=== PATIENT | female | born 2000 | race Caucasian/White ===

== ENCOUNTER 2019-10-11 21:23 | Emergency (ER) | payer OTHER ==
[2019-10-11 21:37] VITALS: BP 121/85
--- NOTE | 2019-10-11 22:14 | XRAY Report ---
Reason: pain Procedure Date: 10/11/2019 Accession Number: [id number] / [id number] Procedure: XR - Shoulder 3 View RT CPT Code: Final Report FULL RESULT: EXAM: RIGHT SHOULDER RADIOGRAPHY EXAM DATE: 10/11/2019 10:08 PM. CLINICAL HISTORY: Pain. COMPARISON: None. TECHNIQUE: 3 views. FINDINGS: Bones: Normal. No fracture or bone lesion. Joints: The glenohumeral and acromioclavicular joints are normal. Soft tissues: The visualized hemithorax is unremarkable. No soft tissue swelling. IMPRESSION: Normal shoulder radiography. RAD[facility]
--- NOTE | 2019-10-11 23:11 | ED Physician Documentation ---
PD HPI UPPER EXT INJURY - Stated complaint Stated Complaint: RT SHOULDER INJURY - Chief complaint Chief Complaint: Trauma Ext - History obtained from History obtained from: Patient - History of Present Illness Location: Right, Shoulder Type of injury: Fall Where injury occurred: Home Timing - onset: Enter time (21:00) Timing - details: Abrupt onset Improved by: Rest Worsened by: Moving, Palpating Associated symptoms: No: Weakness, Numbness, Tingling, Swelling, Discolored Recently seen: Not recently seen - Additonal information Additional information: tripped and fell at home 9PM, c/o right shoulder pain Review of Systems Musculoskeletal: reports: Joint pain (right shoulder). denies: Neck pain, Back pain Neurologic: denies: Focal weakness, Numbness PD PAST MEDICAL HISTORY - Past Medical History Past Medical History: No - Past Surgical History Past Surgical History: No - Present Medications Home Medications: Ambulatory Orders Medication Instructions Recorded Confirmed Amoxicillin 10/11/19 HYDROcod/ACETAM 5/325 [[place] 5/325] 10/11/19 10/11/19 traMADol [Ultram] 50 - 100 mg PO Q6H PRN #20 tablet 10/11/19 - Allergies Allergies/Adverse Reactions: Allergies Allergy/AdvReac Type Severity Reaction Status Date / Time No Known Drug Allergies Allergy Verified 10/11/19 21:36 - Living Situation Living Situation: reports: With family Living Arrangement: reports: At home PD ED PE NORMAL - Vitals Vital signs reviewed: Yes - General General: Alert and oriented X 3, No acute distress, Well developed/nourished - Neck Neck: No bony TTP - Neuro Neuro: No motor deficit, No sensory deficit PD ED PE EXPANDED - Extremities Extremities: Tenderness, Limited ROM, Right shoulder Results - Vitals Vitals: Oxygen O2 Source Room air - Rads (name of study) right shoulder xrays Radiology: Prelim report reviewed, See rad report PD MEDICAL DECISION MAKING - ED course Complexity details: reviewed results, re-evaluated patient, considered differential, d/w patient Departure - Departure Disposition: 01 Home, Self Care Clinical Impression: Sprain of shoulder, right Condition: Good Instructions: ED Sprain Shoulder Prescriptions: traMADol [Ultram] 50 - 100 mg PO Q6H PRN #20 tablet PRN Reason: Pain Discharge Date/Time: 10/11/19 23:37
[2019-10-11] MEDS ORDERED: traMADol 50 MG TABLET PO STA (23:28)
== END 2019-10-11 23:37 | disposition home or self-care (01) ==
LOC: ED 21:23
DX: S43.401A Unspecified sprain of right shoulder joint, initial encounter (principal); W10.9XXA Fall (on) (from) unspecified stairs and steps, initial encounter; Y92.009 Unspecified place in unspecified non-institutional (private) residence as the place of occurrence of the external cause
CPT/HCPCS: 73030; 99283; A9270

== ENCOUNTER 2020-03-02 13:11 | Emergency (ER) | payer OTHER ==
[2020-03-02 13:17] VITALS: BP 125/79
[2020-03-02 13:30] LABS: RAPID STREP SCREEN Negative (Negative)
[2020-03-02] MEDS ORDERED: DEXAMETHASONE 10 MG/ML VIAL PO STA (13:47)
[2020-03-02] MEDS ORDERED: CHERRY SYRUP 10 ML UDC PO ONE (13:47)
--- NOTE | 2020-03-02 13:56 | ED Physician Documentation ---
PD HPI HEENT - Stated complaint Stated Complaint: SORE THROAT - Chief complaint Chief Complaint: Heent - History obtained from History obtained from: Patient, Family - History of Present Illness Timing - onset: How many weeks ago (2) Timing - duration: Weeks (2) Timing - details: Gradual onset, Still present Location: Throat Improves: Medication Worsens: Swalllowing Associated symptoms: Congestion, Swollen nodes, Cough Similar symptoms before: Diagnosis (tonsillitis) Recently seen: Not recently seen - Additional information Additional information: 19-year-old female with a prior history of strep pharyngitis has developed a sore throat she has had pain intermittently now for 2 weeks she did take some leftover amoxicillin and this is not gone away. She is having worsening of symptoms now when she is got a lot of white stuff draining on her tonsils. Review of Systems Constitutional: reports: Myalgias, Fatigue. denies: Fever Eyes: denies: Decreased vision Ears: denies: Ear pain Nose: reports: Congestion Throat: reports: Sore throat Cardiac: denies: Chest pain / pressure, Palpitations Respiratory: reports: Cough. denies: Dyspnea GI: denies: Abdominal Pain, Nausea, Vomiting : denies: Dysuria PD PAST MEDICAL HISTORY - Past Surgical History Past Surgical History: No - Present Medications Home Medications: Ambulatory Orders Medication Instructions Recorded Confirmed Amoxicillin 10/11/19 HYDROcod/ACETAM 5/325 [[place] 5/325] 10/11/19 10/11/19 traMADol [Ultram] 50 - 100 mg PO Q6H PRN #20 tablet 10/11/19 Amox/Clav 875/125 [Augmentin] 1 each PO Q12H #20 tablet 03/02/20 - Allergies Allergies/Adverse Reactions: Allergies Allergy/AdvReac Type Severity Reaction Status Date / Time No Known Drug Allergies Allergy Verified 03/02/20 13:15 PD ED PE NORMAL - Vitals Vital signs reviewed: Yes (tachy ) - General General: Alert and oriented X 3, No acute distress, Well developed/nourished - HEENT HEENT: Atraumatic, PERRL, EOMI, Ears normal, Other (the pharynx is with 2+ cryptic tonsils with exudate) - Neck Neck: Supple, no meningeal sign, No bony TTP, Other (shoddy adenopathy bilat ) - Cardiac Cardiac: RRR, No murmur - Respiratory Respiratory: No respiratory distress, Clear bilaterally - Abdomen Abdomen: Soft, Non tender - Back Back: No CVA TTP, No spinal TTP - Extremities Extremities: No deformity, No edema, No calf tenderness / cord - Neuro Neuro: Alert and oriented X 3, curriculum coordinator 2-12 intact, No motor deficit, No sensory deficit, Normal speech Eye Opening: Spontaneous Motor: Obeys Commands Verbal: Oriented GCS Score: 15 - Psych Psych: Normal mood, Normal affect Results - Vitals Vitals: Vital Signs - 24 hr 03/02/20 13:15 Temperature 36.5 C Heart Rate 110 H Respiratory 14 Rate Blood Pressure 125/79 O2 Saturation 98 Oxygen O2 Source Room air - Labs Labs: Laboratory Tests 03/02/20 13:18 Group A Strep Rapid Negative PD MEDICAL DECISION MAKING - ED course Complexity details: reviewed results, re-evaluated patient, considered differential, d/w patient, d/w family ED course: 27-year-old female with a cryptic exudative tonsillitis endorses the fact that she has been staying awake too long at night. She has recurrence of symptoms and she has been using warm saline gargle. We will change her antibiotic to Augmentin and give her a dose of dexamethasone and refer her to ENT. She is very interested in getting her tonsils out. Departure - Departure Disposition: 01 Home, Self Care Clinical Impression: Tonsillitis Condition: Stable Instructions: ED Tonsillitis Follow-Up: [facility] [Provider Group] [facility] [Provider Group] Prescriptions: Amox/Clav 875/125 [Augmentin] 1 each PO Q12H #20 tablet
== END 2020-03-02 14:08 | disposition home or self-care (01) ==
LOC: ED 13:11
DX: J03.90 Acute tonsillitis, unspecified (principal)
CPT/HCPCS: 87070; 87077; 87430; 99283; 99284; A9270

== ENCOUNTER 2020-07-08 12:27 | Emergency (ER) | payer OTHER ==
[2020-07-08 13:37] LABS: BASOPHILS # (AUTO) 0.1 10^3/uL (0.0-0.1); BASOPHILS % (AUTO) 0.6 %; EOSINOPHILS # (AUTO) 0.1 10^3/uL (0.0-0.7); EOSINOPHILS % (AUTO) 1.1 %; HGB - HEMOGLOBIN 14.4 g/dL (12.0-16.0); LYMPHOCYTES # (AUTO) 2.2 10^3/uL (1.5-3.5); LYMPHOCYTES % (AUTO) 27.5 %; MEAN CORPUSCULAR HEMOGLOBIN 31.5 pg (27.0-31.0); MEAN CORPUSCULAR HGB CONC 34.5 g/dL (32.0-36.0); MEAN CORPUSCULAR VOLUME 91.2 fL (81.0-99.0); MEAN PLATELET VOLUME 10.6 fL (7.9-10.8); MONOCYTES # (AUTO) 0.5 10^3/uL (0.0-1.0); MONOCYTES % (AUTO) 6.4 %; NEUTROPHILS # (AUTO) 5.1 10^3/uL (1.5-6.6); NEUTROPHILS % (AUTO) 64.1 %; PLT - PLATELET COUNT 331 10^3/uL (130-450); RED BLOOD COUNT 4.57 10^6/uL (4.20-5.40)
[2020-07-08 13:50] LABS: ALBUMIN 4.6 g/dL (3.2-5.5); ALBUMIN/GLOBULIN RATIO 1.3 (1.0-2.2); BILIRUBIN,TOTAL 0.8 mg/dL (0.2-1.0); CALCIUM 9.4 mg/dL (8.5-10.3); CREATININE 0.6 mg/dL (0.4-1.0); TOTAL PROTEIN 8.1 g/dL (6.7-8.2)
[2020-07-08 15:10] LABS: BILIRUBIN,URINE NEGATIVE (NEGATIVE); GLUCOSE, URINE (UA) NEGATIVE (NEGATIVE); KETONES,URINE (UA) NEGATIVE (NEGATIVE); LEUKOCYTE ESTERASE, URINE NEGATIVE (NEGATIVE); NITRITE,URINE NEGATIVE (NEGATIVE); OCCULT BLOOD,URINE LARGE (NEGATIVE); PROTEIN,URINE NEGATIVE (NEGATIVE); UROBILINOGEN,URINE 0.2 (NORMAL) E.U./dL (NORMAL)
[2020-07-08 15:12] LABS: CLARITY,URINE CLEAR (CLEAR)
[2020-07-08 15:13] LABS: HCG UR QUAL NEGATIVE
--- NOTE | 2020-07-08 15:30 | ED Physician Documentation ---
History of Present Illness - Stated complaint Stated Complaint: FEMALE - Chief complaint Chief Complaint: Abd Pain - History obtained from History obtained from: Patient - Additonal information Additional information: Pt presents w/ vaginal bleeding and lower abd cramping that started this AM. She reports she was on the nexplanon and had her LMP on 05/24/20 which was regular. About 2 weeks ago she went to and had a test that was "lightly positive," and she was told to follow up later for repeat testing. Her nexplanon was removed. She then did a test at home that was also positive. She had not yet had an US. Today she had vaginal bleeding and cramping. The bleeding is like a heavy period, several pads throughout the entire day. No dizziness or weakness, no severe abd pain, no dysuria. Bleeding is slowly this afternoon. Normally does not have heavy periods. Review of Systems Constitutional: reports: Reviewed and negative Cardiac: reports: Reviewed and negative Respiratory: reports: Reviewed and negative GI: reports: Abdominal Pain. denies: Abdominal Swelling, Nausea, Vomiting, Constipation, Diarrhea, Hematemesis : reports: Vaginal bleeding, Irregular menses, Missed period Musculoskeletal: reports: Reviewed and negative Neurologic: reports: Reviewed and negative Psychiatric: reports: Reviewed and negative Endocrine: reports: Reviewed and negative PD PAST MEDICAL HISTORY - Past Medical History Past Medical History: Yes Respiratory: Asthma - Past Surgical History Past Surgical History: No - Present Medications Home Medications: Ambulatory Orders Medication Instructions Recorded Confirmed Amoxicillin 10/11/19 HYDROcod/ACETAM 5/325 [[place] 5/325] 10/11/19 10/11/19 traMADol [Ultram] 50 - 100 mg PO Q6H PRN #20 tablet 10/11/19 Amox/Clav 875/125 [Augmentin] 1 each PO Q12H #20 tablet 03/02/20 - Allergies Allergies/Adverse Reactions: Allergies Allergy/AdvReac Type Severity Reaction Status Date / Time No Known Drug Allergies Allergy Verified 07/08/20 12:34 - Social History Does the pt smoke?: No Smoking Status: Never smoker Does the pt drink ETOH?: No Does the pt have substance abuse?: No PD ED PE NORMAL - Vitals Vital signs reviewed: Yes - General General: Alert and oriented X 3, No acute distress, Well developed/nourished - HEENT HEENT: Atraumatic, Moist mucous membranes, Pharynx benign - Cardiac Cardiac: RRR, No murmur, No gallop, No rub, Strong equal pulses - Respiratory Respiratory: No respiratory distress, Clear bilaterally - Abdomen Abdomen: Normal bowel sounds, Soft, Non tender, Non distended, No organomegaly - Derm Derm: Normal color, Warm and dry, No rash - Neuro Neuro: Alert and oriented X 3 Eye Opening: Spontaneous Motor: Obeys Commands Verbal: Oriented GCS Score: 15 - Psych Psych: Normal mood, Normal affect Results - Vitals Vitals: Vital Signs - 24 hr 07/08/20 07/08/20 12:35 15:35 Temperature 36.9 C 36.9 C Heart Rate 79 60 Respiratory 18 16 Rate Blood Pressure 121/82 H 122/80 O2 Saturation 99 100 Oxygen O2 Source Room air - Labs Labs: Laboratory Tests 07/08/20 07/08/20 07/08/20 13:29 13:29 13:29 WBC 8.0 RBC 4.57 Hgb 14.4 Hct 41.7 MCV 91.2 MCH 31.5 H MCHC 34.5 RDW 12.0 Plt Count 331 MPV 10.6 Neut # (Auto) 5.1 Lymph # (Auto) 2.2 [place] # (Auto) 0.5 Eos # (Auto) 0.1 Baso # (Auto) 0.1 Absolute Nucleated RBC 0.00 Nucleated RBC % 0.0 Sodium 136 Potassium 3.6 Chloride 103 Carbon Dioxide 24 Anion Gap 9.0 BUN 10 Creatinine 0.6 Estimated GFR (MDRD) 127 Glucose 102 H Calcium 9.4 Total Bilirubin 0.8 AST 13 ALT 11 Alkaline Phosphatase 82 Total Protein 8.1 Albumin 4.6 Globulin 3.5 Albumin/Globulin Ratio 1.3 Lipase 34 HCG, Quant < 0.60 Urine Color Urine Clarity Urine pH Ur Specific [place] Urine Protein Urine Glucose (UA) Urine Ketones Urine Occult Blood Urine Nitrite Urine Bilirubin Urine Urobilinogen Ur Leukocyte Esterase Urine RBC Urine WBC Ur Squamous Epith Cells Urine Bacteria Ur Microscopic Review Urine Culture Comments Urine HCG, Qual 07/08/20 14:52 WBC RBC Hgb Hct MCV MCH MCHC RDW Plt Count MPV Neut # (Auto) Lymph # (Auto) [place] # (Auto) Eos # (Auto) Baso # (Auto) Absolute Nucleated RBC Nucleated RBC % Sodium Potassium Chloride Carbon Dioxide Anion Gap BUN Creatinine Estimated GFR (MDRD) Glucose Calcium Total Bilirubin AST ALT Alkaline Phosphatase Total Protein Albumin Globulin Albumin/Globulin Ratio Lipase HCG, Quant Urine Color YELLOW Urine Clarity CLEAR Urine pH 6.0 Ur Specific [place] <=1.005 Urine Protein NEGATIVE Urine Glucose (UA) NEGATIVE Urine Ketones NEGATIVE Urine Occult Blood LARGE H Urine Nitrite NEGATIVE Urine Bilirubin NEGATIVE Urine Urobilinogen 0.2 (NORMAL) Ur Leukocyte Esterase NEGATIVE Urine RBC 6-10 H Urine WBC 0-3 Ur Squamous Epith Cells NONE SEEN Urine Bacteria Rare Ur Microscopic Review INDICATED Urine Culture Comments NOT INDICATED Urine HCG, Qual NEGATIVE PD MEDICAL DECISION MAKING - ED course Complexity details: reviewed results, re-evaluated patient, considered differential, d/w patient ED course: Pt presented w/ vaginal bleeding. Her urine test here and quantitative serum test is negative. It is likely that her clinic test was a false positive or she had an extremely early that was lost. Her labs and exam are otherwise reassuring. I offered vaginal speculum exam to look for other sources of bleeding, but advised this could also be a regular menses, and pt declined. Discussed expectant management, advised fup w/ PCP or PP in the next week. Pt is desiring and declines any contraception at this time. Return precautions reviewed in detail if fever, increased pain, bleeding > 2pads/hr x 2 hours, or otherwise worsening sx. Departure - Departure Disposition: 01 Home, Self Care Clinical Impression: Vaginal bleeding Condition: Good Comments: You presented with vaginal bleeding after two positive tests at home. Your test here was negative and your serum quantitative test was also negative. You may have had an extremely early loss or it is also possible that the tests done previously were false positives. Your labs today are all normal. You may have a regular menstrual bleed for the next few days. You can take ibuprofen or tylenol. If you have bleeding > 2 pads/hour x 2 hours or have severe abd pain, fever or other new concerns, return to the ER. Please follow up with your aviation technical systems specialist within the next week. Discharge Date/Time: 07/08/20 15:52
[2020-07-08 15:36] VITALS: BP 122/80
[2020-07-08 15:42] LABS: BACTERIA,URINE Rare /HPF (None Seen); SQUAMOUS EPITHELIAL CELL,UR NONE SEEN (<= Few)
== END 2020-07-08 15:52 | disposition home or self-care (01) ==
LOC: ED 12:27
DX: N93.9 Abnormal uterine and vaginal bleeding, unspecified (principal); N92.6 Irregular menstruation, unspecified
CPT/HCPCS: 36415; 80053; 81001; 81003; 81025; 83690; 84702; 85025; 87086; 99283; 99284

== ENCOUNTER 2020-07-15 02:54 | Emergency (ER) | payer OTHER ==
--- NOTE | 2020-07-15 02:53 | ED Physician Documentation ---
PD HPI MHE - Stated complaint Stated Complaint: SI - History obtained from History obtained from: Patient, EMS - History of Present Illness Primary symptom: Suicidal ideation Timing - onset: Today Pain level max: 0 Pain level now: 0 Contributing factors: Sig other Recently seen: Emergency Dept - Additional information Additional information: CRISSYLui. Patient was evaluated in this ED 07/08; at that time, she was under the impression that she was and she was concerned she was having a miscarriage. She says she had a test by PMD that was positive but in ED 07/08 her urine and serum tests were both negative and she was discharged. She was told it was possible she was very early in and had a miscarriage although this was unlikely given her negative serum test. Tonight she was having phone conversation with her boyfriend and she says that he told her something to the effect of blaming her for the possible miscarriage and as a result he wanted to break up with her. Patient currently lives with her and they are in the final stages of finalizing a divorce. Per patient, the boyfriend then called 911 due to concern that she was going to harm herself. She admits to h/o cutting behavior but no recent such behavior and she admits that she was considering cutting tonight but she currently denies SI. She arrives via EMS voluntarily Review of Systems Cardiac: reports: Reviewed and negative Respiratory: reports: Reviewed and negative GI: reports: Reviewed and negative Psychiatric: reports: Insomnia. denies: Suicidal (denies suicidal intent although admits to considering self-harm earlier tonight in form of cutting) PD PAST MEDICAL HISTORY - Past Medical History Past Medical History: No - Past Surgical History Past Surgical History: No - Present Medications Home Medications: Ambulatory Orders Medication Instructions Recorded Confirmed Aripiprazole [Abilify] 2 mg PO DAILY #30 tablet 07/15/20 traZODone [Desyrel] 50 - 100 mg PO HS PRN #20 tablet 07/15/20 - Allergies Allergies/Adverse Reactions: Allergies Allergy/AdvReac Type Severity Reaction Status Date / Time No Known Drug Allergies Allergy Verified 07/15/20 03:05 - Living Situation Living Arrangement: reports: At home PD ED PE NORMAL - Vitals Vital signs reviewed: Yes - General General: Alert and oriented X 3, Well developed/nourished, Other (appears anxious and tearful at times but she is polite and cooperative and answers quickly and appropriately) - Cardiac Cardiac: RRR, No murmur - Respiratory Respiratory: No respiratory distress, Clear bilaterally - Neuro Neuro: Alert and oriented X 3 Eye Opening: Spontaneous Motor: Obeys Commands Verbal: Oriented GCS Score: 15 PD ED PE EXPANDED - Psych Psych: Tearful, Anxious (appears mildly anxious at times during H+P) Results - Vitals Vitals: Oxygen O2 Source Room air - Labs Labs: Laboratory Tests 07/15/20 07/15/20 07/15/20 03:22 03:22 04:00 WBC 11.9 H RBC 4.30 Hgb 13.3 Hct 39.6 MCV 92.1 MCH 30.9 MCHC 33.6 RDW 12.3 Plt Count 349 MPV 10.6 Neut # (Auto) 8.7 H Lymph # (Auto) 2.4 [place] # (Auto) 0.6 Eos # (Auto) 0.1 Baso # (Auto) 0.1 Absolute Nucleated RBC 0.00 Nucleated RBC % 0.0 Sodium Potassium Chloride Carbon Dioxide Anion Gap BUN Creatinine Estimated GFR (MDRD) Glucose Calcium Total Bilirubin AST ALT Alkaline Phosphatase Total Protein Albumin Globulin Albumin/Globulin Ratio Lipase TSH Urine Color YELLOW Urine Clarity CLEAR Urine pH 6.0 Ur Specific [place] 1.020 1.020 Urine Protein NEGATIVE Urine Glucose (UA) NEGATIVE Urine Ketones NEGATIVE Urine Occult Blood TRACE-INTA Urine Nitrite NEGATIVE Urine Bilirubin NEGATIVE Urine Urobilinogen 0.2 (NORMAL) Ur Leukocyte Esterase NEGATIVE Ur Microscopic Review NOT INDICATED Urine Culture Comments NOT INDICATED Urine HCG, Qual NEGATIVE Salicylates Urine Opiates Screen NEGATIVE Ur Oxycodone Screen NEGATIVE Urine Methadone Screen NEGATIVE Ur Propoxyphene Screen NEGATIVE Acetaminophen Ur Barbiturates Screen NEGATIVE Ur Tricyclics Screen NEGATIVE Ur Phencyclidine Scrn NEGATIVE Ur Amphetamine Screen NEGATIVE U Methamphetamines Scrn NEGATIVE U Benzodiazepines Scrn NEGATIVE Urine Cocaine Screen NEGATIVE U Cannabinoids Screen NEGATIVE Ethyl Alcohol 07/15/20 07/15/20 04:00 04:00 WBC RBC Hgb Hct MCV MCH MCHC RDW Plt Count MPV Neut # (Auto) Lymph # (Auto) [place] # (Auto) Eos # (Auto) Baso # (Auto) Absolute Nucleated RBC Nucleated RBC % Sodium 139 Potassium 4.4 Chloride 106 Carbon Dioxide 24 Anion Gap 9.0 BUN 8 Creatinine 0.6 Estimated GFR (MDRD) 127 Glucose 106 H Calcium 9.7 Total Bilirubin 0.7 AST 11 ALT < 10 L Alkaline Phosphatase 73 Total Protein 7.6 Albumin 4.5 Globulin 3.1 Albumin/Globulin Ratio 1.5 Lipase 26 TSH 2.42 Urine Color Urine Clarity Urine pH Ur Specific [place] Urine Protein Urine Glucose (UA) Urine Ketones Urine Occult Blood Urine Nitrite Urine Bilirubin Urine Urobilinogen Ur Leukocyte Esterase Ur Microscopic Review Urine Culture Comments Urine HCG, Qual Salicylates < 6.0 Urine Opiates Screen Ur Oxycodone Screen Urine Methadone Screen Ur Propoxyphene Screen Acetaminophen < 10 L Ur Barbiturates Screen Ur Tricyclics Screen Ur Phencyclidine Scrn Ur Amphetamine Screen U Methamphetamines Scrn U Benzodiazepines Scrn Urine Cocaine Screen U Cannabinoids Screen Ethyl Alcohol < 5.0 PD MEDICAL DECISION MAKING - ED course Complexity details: reviewed results, re-evaluated patient, considered differential, d/w patient ED course: telepscyh consult obtained and plan is d/c with rx for abilify 2mg QD as well as PRN trazadone QHS for sleep. I discussed this with patient after telepsych consult completed and she confirms she is comfortable with this plan, will return if worse, f/u with PMD Departure - Departure Disposition: 01 Home, Self Care Clinical Impression: Depression Qualifiers: Depression Type: unspecified Qualified Code(s): F32.9 - Major depressive disorder, single episode, unspecified Condition: Good Instructions: ED Depression Follow-Up: [facility] [Provider Group] Prescriptions: Aripiprazole [Abilify] 2 mg PO DAILY #30 tablet traZODone [Desyrel] 50 - 100 mg PO HS PRN #20 tablet PRN Reason: Insomnia Discharge Date/Time: 07/15/20 09:01
[2020-07-15 03:49] LABS: MUDS CUTOFF CONCENTRATIONS CUTOFF CONC BELOW:
[2020-07-15 03:52] LABS: BILIRUBIN,URINE NEGATIVE (NEGATIVE); GLUCOSE, URINE (UA) NEGATIVE (NEGATIVE); KETONES,URINE (UA) NEGATIVE (NEGATIVE); LEUKOCYTE ESTERASE, URINE NEGATIVE (NEGATIVE); NITRITE,URINE NEGATIVE (NEGATIVE); OCCULT BLOOD,URINE TRACE-INTA (NEGATIVE); PROTEIN,URINE NEGATIVE (NEGATIVE); UROBILINOGEN,URINE 0.2 (NORMAL) E.U./dL (NORMAL)
[2020-07-15 04:00] LABS: CLARITY,URINE CLEAR (CLEAR)
[2020-07-15 04:02] LABS: AMPHETAMINE SCREEN,URINE NEGATIVE (NEGATIVE); BENZODIAZEPINES SCREEN, URINE NEGATIVE (NEGATIVE); COCAINE SCREEN URINE NEGATIVE (NEGATIVE); METHADONE SCREEN, URINE NEGATIVE (NEGATIVE); METHAMPHETAMINES SCREEN, URINE NEGATIVE (NEGATIVE); OPIATE SCREEN, URINE NEGATIVE (NEGATIVE); OXYCODONE SCREEN, URINE NEGATIVE (NEGATIVE); PROPOXYPHENE SCREEN, URINE NEGATIVE (NEGATIVE); TRICYCLIC ANTIDEPRESSANT,URINE NEGATIVE (NEGATIVE)
[2020-07-15 04:03] LABS: BASOPHILS # (AUTO) 0.1 10^3/uL (0.0-0.1); BASOPHILS % (AUTO) 0.5 %; EOSINOPHILS # (AUTO) 0.1 10^3/uL (0.0-0.7); EOSINOPHILS % (AUTO) 0.4 %; HGB - HEMOGLOBIN 13.3 g/dL (12.0-16.0); LYMPHOCYTES # (AUTO) 2.4 10^3/uL (1.5-3.5); LYMPHOCYTES % (AUTO) 20.3 %; MEAN CORPUSCULAR HEMOGLOBIN 30.9 pg (27.0-31.0); MEAN CORPUSCULAR HGB CONC 33.6 g/dL (32.0-36.0); MEAN CORPUSCULAR VOLUME 92.1 fL (81.0-99.0); MEAN PLATELET VOLUME 10.6 fL (7.9-10.8); MONOCYTES # (AUTO) 0.6 10^3/uL (0.0-1.0); MONOCYTES % (AUTO) 4.9 %; NEUTROPHILS # (AUTO) 8.7 10^3/uL (1.5-6.6); NEUTROPHILS % (AUTO) 73.6 %; PLT - PLATELET COUNT 349 10^3/uL (130-450); RED CELL DISTRIBUTION WIDTH 12.3 % (12.0-15.0); WHITE BLOOD COUNT 11.9 x10^3/uL (4.8-10.8)
[2020-07-15 04:18] LABS: ACETAMINOPHEN < 10 ug/mL (10-30); ALBUMIN 4.5 g/dL (3.2-5.5); ALBUMIN/GLOBULIN RATIO 1.5 (1.0-2.2); ALKALINE PHOSPHATASE 73 IU/L (42-121); ALT ALANINE AMINOTRANSFERASE < 10 IU/L (10-60); AST ASPARTATE AMINOTRANSFERASE 11 IU/L (10-42); BILIRUBIN,TOTAL 0.7 mg/dL (0.2-1.0); BUN - BLOOD UREA NITROGEN 8 mg/dL (6-20); CALCIUM 9.7 mg/dL (8.5-10.3); CARBON DIOXIDE - CO2 24 mmol/L (21-32); CHLORIDE 106 mmol/L (101-111); CREATININE 0.6 mg/dL (0.4-1.0); GLUCOSE 106 mg/dL (70-100); LIPASE 26 U/L (22-51); SALICYLATE < 6.0 mg/dL; SODIUM 139 mmol/L (135-145); TOTAL PROTEIN 7.6 g/dL (6.7-8.2)
[2020-07-15 05:32] LABS: HCG UR QUAL NEGATIVE
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
[2020-07-15 08:23] VITALS: BP 106/72
[2020-07-15] MEDS ORDERED: ACETAMINOPHEN 325 MG TABLET PO STA (08:23)
== END 2020-07-15 09:01 | disposition home or self-care (01) ==
LOC: EDUNIT# → ED 02:54
DX: F31.60 Bipolar disorder, current episode mixed, unspecified (principal); F43.12 Post-traumatic stress disorder, chronic
CPT/HCPCS: 36415; 80320; 80329; 81003; 81025; 83690; 99284; A9270; G0426; 80053; 80306; 80307; 81001; 84443; 85025; 87086

== ENCOUNTER 2020-11-02 19:42 | Emergency (ER) | payer OTHER ==
[2020-11-02 20:03] LABS: BILIRUBIN,URINE NEGATIVE (NEGATIVE); GLUCOSE, URINE (UA) NEGATIVE (NEGATIVE); KETONES,URINE (UA) NEGATIVE (NEGATIVE); LEUKOCYTE ESTERASE, URINE NEGATIVE (NEGATIVE); NITRITE,URINE NEGATIVE (NEGATIVE); OCCULT BLOOD,URINE NEGATIVE (NEGATIVE); PH,URINE 7.5 PH (5.0-7.5); PROTEIN,URINE NEGATIVE (NEGATIVE); UROBILINOGEN,URINE 0.2 (NORMAL) E.U./dL (NORMAL)
[2020-11-02 20:04] LABS: HCG UR QUAL POSITIVE
[2020-11-02 20:05] LABS: CLARITY,URINE CLEAR (CLEAR)
[2020-11-02 20:22] LABS: BACTERIA,URINE Rare /HPF (None Seen); RBC,URINE None Seen /HPF (0-5); SQUAMOUS EPITHELIAL CELL,UR FEW Squamous (<= Few); WBC,URINE 0-3 /HPF (0-5)
--- NOTE | 2020-11-02 20:49 | ED Physician Documentation ---
History of Present Illness - Stated complaint Stated Complaint: FEMALE - Chief complaint Chief Complaint: Abd Pain - History obtained from History obtained from: Patient - Additonal information Additional information: 20-year-old woman, G1, P0 with LMP September 28 presents with 1 episode of nonbloody nonbilious nausea vomiting today and request that we confirm her . She states that she took 10 tests today and is worried because she was drinking alcohol over the weekend. Denies vaginal bleeding, abdominal pain, fevers, urinary symptoms. Has not seen an OB yet but she is ivette ing a vitamin.Endorses some decreased appetite and increased urinary frequency. Review of Systems Ten Systems: 10 systems reviewed and negative Constitutional: denies: Fever, Chills GI: reports: Nausea, Vomiting. denies: Abdominal Pain PD PAST MEDICAL HISTORY - Past Medical History Past Medical History: Yes Respiratory: Asthma - Past Surgical History Past Surgical History: No - Present Medications Home Medications: Ambulatory Orders Medication Instructions Recorded Confirmed No Known Home Medications 11/02/20 11/02/20 - Allergies Allergies/Adverse Reactions: Allergies Allergy/AdvReac Type Severity Reaction Status Date / Time hydrocodone AdvReac Unknown Verified 11/02/20 20:06 - Social History Does the pt smoke?: No Smoking Status: Never smoker Does the pt drink ETOH?: Yes Does the pt have substance abuse?: No - Immunizations Immunizations are current?: Yes - POLST Patient has POLST: No PD ED PE NORMAL - Vitals Vital signs reviewed: Yes - General General: Alert and oriented X 3, No acute distress, Well developed/nourished - HEENT HEENT: Atraumatic, PERRL, EOMI - Neck Neck: Supple, no meningeal sign - Cardiac Cardiac: RRR - Respiratory Respiratory: No respiratory distress, Clear bilaterally - Abdomen Abdomen: Non tender, Non distended - Back Back: No CVA TTP - Derm Derm: Normal color, Warm and dry - Extremities Extremities: No deformity, No edema - Neuro Neuro: Alert and oriented X 3 - Psych Psych: Normal mood Results - Vitals Vitals: Vital Signs - 24 hr 11/02/20 11/02/20 11/02/20 19:52 20:06 20:51 Temperature 36.9 C Heart Rate 89 93 74 Respiratory 17 16 16 Rate Blood Pressure 131/72 H 123/67 126/70 O2 Saturation 100 100 100 Oxygen O2 Source Room air - Labs Labs: Laboratory Tests 11/02/20 11/02/20 19:52 19:52 Urine Color YELLOW Urine Clarity CLEAR Urine pH 7.5 Ur Specific [place] 1.025 Urine Protein NEGATIVE Urine Glucose (UA) NEGATIVE Urine Ketones NEGATIVE Urine Occult Blood NEGATIVE Urine Nitrite NEGATIVE Urine Bilirubin NEGATIVE Urine Urobilinogen 0.2 (NORMAL) Ur Leukocyte Esterase NEGATIVE Urine RBC None Seen Urine WBC 0-3 Ur Squamous Epith Cells FEW Squamous Urine Bacteria Rare Urine Culture Comments NOT INDICATED Urine HCG, Qual POSITIVE PD MEDICAL DECISION MAKING - ED course ED course: 20-year-old woman presents requesting a confirmation of test. She is on qualitative test. Counseling was given about morning sickness and need for frequent small meals as well as vitamin and OB follow-up. She will make an appointment this week. Strict return precautions given. Departure - Departure Disposition: 01 Home, Self Care Clinical Impression: Early stage of , Vomiting Condition: Good Instructions: Preg Comfort Tips Follow-Up: Jazmyn Cannon MD [Provider Admit Priv/Credential] - Comments: You were seen in the emergency department for Nausea and vomiting related to early . You should call and make an appointment for your first 8-week appointment this week. Please take a vitamin daily and make sure you eat small meals regularly throughout the day. Drink 8 to 10 glasses of water daily at least. Return to the emergency department if you experience vaginal bleeding, severe pain, or other symptoms of concern to you. Discharge Date/Time: 11/02/20 20:56
[2020-11-02 20:52] VITALS: BP 126/70
== END 2020-11-02 20:56 | disposition home or self-care (01) ==
LOC: ED 19:42
DX: O21.9 Vomiting of pregnancy, unspecified (principal); Z3A.01 Less than 8 weeks gestation of pregnancy
CPT/HCPCS: 81001; 81025; 87086; 99282; 99283

== ENCOUNTER 2020-11-08 22:08 | Emergency (ER) | payer OTHER ==
--- NOTE | 2020-11-08 22:20 | ED Physician Documentation ---
PD HPI FEMALE - Stated complaint Stated Complaint: FEMALE ,BLEEDING - Chief complaint Chief Complaint: Abd Pain - History obtained from History obtained from: Patient - History of Present Illness Timing - onset: Enter time (15:00), Today Timing - details: Abrupt onset Pain level max: 6 Associated symptoms: Pelvic pain (suprapubic), Vaginal bleeding. 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 She returns at this time because she developed vaginal bleeding and suprapubic cramping pain at approximately 3 PM today while at work. She has not yet been evaluated in outpatient setting; she says she has placed several calls to [facility] but has yet to hear back from them. Review of Systems Constitutional: reports: Reviewed and negative GI: reports: Abdominal Pain (suprapubic cramping). denies: Nausea, Vomiting, Constipation, Diarrhea : reports: Vaginal bleeding, Now EGA. denies: Dysuria, Frequency Musculoskeletal: denies: Back pain PD PAST MEDICAL HISTORY - Past Medical History Respiratory: Asthma - Past Surgical History Past Surgical History: No - Present Medications Home Medications: Ambulatory Orders Medication Instructions Recorded Confirmed No Known Home Medications 11/02/20 11/08/20 - Allergies Allergies/Adverse Reactions: Allergies Allergy/AdvReac Type Severity Reaction Status Date / Time hydrocodone AdvReac Unknown Verified 11/08/20 22:13 - Social History Does the pt smoke?: No Smoking Status: Never smoker Does the pt drink ETOH?: Yes Does the pt have substance abuse?: No - Immunizations Immunizations are current?: Yes - POLST Patient has POLST: No PD ED PE NORMAL - Vitals Vital signs reviewed: Yes - General General: Alert and oriented X 3, No acute distress, Well developed/nourished - Cardiac Cardiac: RRR, No murmur - Respiratory Respiratory: No respiratory distress, Clear bilaterally - Abdomen Abdomen: Soft, Non tender - Back Back: No CVA TTP Results - Vitals Vitals: Oxygen O2 Source Room air - Labs Labs: Laboratory Tests 11/08/20 11/08/20 11/08/20 22:12 22:33 22:33 WBC 11.3 H RBC 4.23 Hgb 13.3 Hct 39.8 MCV 94.1 MCH 31.4 H MCHC 33.4 RDW 12.4 Plt Count 331 MPV 10.4 Neut # (Auto) 7.9 H Lymph # (Auto) 2.7 [place] # (Auto) 0.6 Eos # (Auto) 0.1 Baso # (Auto) 0.1 Absolute Nucleated RBC 0.00 Nucleated RBC % 0.0 Sodium Potassium Chloride Carbon Dioxide Anion Gap BUN Creatinine Estimated GFR (MDRD) Glucose Calcium HCG, Quant Urine Color YELLOW Urine Clarity CLEAR Urine pH 6.5 Ur Specific [place] 1.025 Urine Protein NEGATIVE Urine Glucose (UA) NEGATIVE Urine Ketones NEGATIVE Urine Occult Blood TRACE-INTA Urine Nitrite NEGATIVE Urine Bilirubin NEGATIVE Urine Urobilinogen 0.2 (NORMAL) Ur Leukocyte Esterase NEGATIVE Ur Microscopic Review NOT INDICATED Urine Culture Comments NOT INDICATED Blood Type A POSITIVE Antibody Screen NEGATIVE 11/08/20 11/08/20 22:33 22:33 WBC RBC Hgb Hct MCV MCH MCHC RDW Plt Count MPV Neut # (Auto) Lymph # (Auto) [place] # (Auto) Eos # (Auto) Baso # (Auto) Absolute Nucleated RBC Nucleated RBC % Sodium 141 Potassium 3.5 Chloride 104 Carbon Dioxide 24 Anion Gap 13.0 BUN 10 Creatinine 0.6 Estimated GFR (MDRD) 126 Glucose 93 Calcium 10.1 HCG, Quant 3723.00 Urine Color Urine Clarity Urine pH Ur Specific [place] Urine Protein Urine Glucose (UA) Urine Ketones Urine Occult Blood Urine Nitrite Urine Bilirubin Urine Urobilinogen Ur Leukocyte Esterase Ur Microscopic Review Urine Culture Comments Blood Type Antibody Screen - Rads (name of study) first trimester US Radiology: Prelim report reviewed, See rad report PD MEDICAL DECISION MAKING - ED course Complexity details: reviewed results, re-evaluated patient, considered differential, d/w patient Departure - Departure Disposition: 01 Home, Self Care Clinical Impression: Threatened miscarriage Condition: Good Instructions: ED Miscarriage Poss Follow-Up: Donis Rice MD [Provider Admit Priv/Credential] - JESSIE BREAUX ARNP [Primary Care Provider] - Discharge Date/Time: 11/09/20 01:29
[2020-11-08 22:32] LABS: BILIRUBIN,URINE NEGATIVE (NEGATIVE); CLARITY,URINE CLEAR (CLEAR); GLUCOSE, URINE (UA) NEGATIVE (NEGATIVE); KETONES,URINE (UA) NEGATIVE (NEGATIVE); LEUKOCYTE ESTERASE, URINE NEGATIVE (NEGATIVE); NITRITE,URINE NEGATIVE (NEGATIVE); OCCULT BLOOD,URINE TRACE-INTA (NEGATIVE); PH,URINE 6.5 PH (5.0-7.5); PROTEIN,URINE NEGATIVE (NEGATIVE); UROBILINOGEN,URINE 0.2 (NORMAL) E.U./dL (NORMAL)
[2020-11-08 22:41] LABS: BASOPHILS # (AUTO) 0.1 10^3/uL (0.0-0.1); BASOPHILS % (AUTO) 0.5 %; EOSINOPHILS # (AUTO) 0.1 10^3/uL (0.0-0.7); EOSINOPHILS % (AUTO) 0.6 %; HCT - HEMATOCRIT 39.8 % (37.0-47.0); HGB - HEMOGLOBIN 13.3 g/dL (12.0-16.0); LYMPHOCYTES # (AUTO) 2.7 10^3/uL (1.5-3.5); LYMPHOCYTES % (AUTO) 24.2 %; MEAN CORPUSCULAR HEMOGLOBIN 31.4 pg (27.0-31.0); MEAN CORPUSCULAR HGB CONC 33.4 g/dL (32.0-36.0); MEAN CORPUSCULAR VOLUME 94.1 fL (81.0-99.0); MEAN PLATELET VOLUME 10.4 fL (7.9-10.8); MONOCYTES # (AUTO) 0.6 10^3/uL (0.0-1.0); NEUTROPHILS # (AUTO) 7.9 10^3/uL (1.5-6.6); NEUTROPHILS % (AUTO) 69.4 %; PLT - PLATELET COUNT 331 10^3/uL (130-450); RED BLOOD COUNT 4.23 10^6/uL (4.20-5.40); RED CELL DISTRIBUTION WIDTH 12.4 % (12.0-15.0); WHITE BLOOD COUNT 11.3 x10^3/uL (4.8-10.8)
[2020-11-08 22:55] LABS: CALCIUM 10.1 mg/dL (8.5-10.3); CREATININE 0.6 mg/dL (0.4-1.0); POTASSIUM 3.5 mmol/L (3.5-5.0)
[2020-11-09 01:29] VITALS: BP 133/75
--- NOTE | 2020-11-09 13:39 | Ultrasound Report ---
PROCEDURE: OB First Trimester INDICATIONS: ,vaginal bleeding, cramping OUTSIDE/PRIOR DATING DATA: Last menstrual period (LMP): 09/28/2020. LMP-based estimated date of delivery (TOÑITO): 09/04/2020. First dating scan (date and location): 11/08/2020. Estimated date of delivery (TOÑITO) from first dating scan: Not applicable. TECHNIQUE: Real-time scanning was performed of the fetus and maternal pelvic organs, with image documentation. COMPARISON: None FINDINGS: Embryo: Intrauterine gestational sac is identified measuring 4 mm corresponding to 5 weeks 1 day. No pole is identified. Measurement variability in dating: +/- 4 weeks by LMP, +/- 7 days by mean sac diameter (use before 6 weeks gestation if crown-rump length not able to be measured), +/- 5 days by crown-rump length (6-12 weeks gestation). Maternal organs: Ovaries are unremarkable. IMPRESSION: 1. Intrauterine gestational sac without visualized pole. Recommend correlation to beta hCG leve ls and short interval imaging follow-up for continued evaluation. The above findings are concordant with preliminary report. Reviewed by: Chantal Burt MD on 11/09/2020 1:37 PM PDT Approved by: Chantal Burt MD on 11/09/2020 1:37 PM PDT Station ID: [id number]
--- NOTE | 2020-11-09 13:39 | Ultrasound Report ---
PROCEDURE: OB Transvaginal INDICATIONS: ,vaginal bleeding, cramping OUTSIDE/PRIOR DATING DATA: Last menstrual period (LMP): 09/28/2020. LMP-based estimated date of delivery (TOÑITO): 09/04/2020. First dating scan (date and location): 11/08/2020. Estimated date of delivery (TOÑITO) from first dating scan: Not applicable. TECHNIQUE: Real-time scanning was performed of the fetus and maternal pelvic organs, with image documentation. COMPARISON: None FINDINGS: Embryo: Intrauterine gestational sac is identified measuring 4 mm corresponding to 5 weeks 1 day. No pole is identified. Measurement variability in dating: +/- 4 weeks by LMP, +/- 7 days by mean sac diameter (use before 6 weeks gestation if crown-rump length not able to be measured), +/- 5 days by crown-rump length (6-12 weeks gestation). Maternal organs: Ovaries are unremarkable. IMPRESSION: 1. Intrauterine gestational sac without visualized pole. Recommend correlation to beta hCG diegoe ls and short interval imaging follow-up for continued evaluation. The above findings are concordant with preliminary report. Reviewed by: Chantal Burt MD on 11/09/2020 1:38 PM PDT Approved by: Chantal Burt MD on 11/09/2020 1:38 PM PDT Station ID: [id number]
== END 2020-11-09 01:29 | disposition home or self-care (01) ==
LOC: ED 22:08
DX: O20.0 Threatened abortion (principal); Z3A.01 Less than 8 weeks gestation of pregnancy
CPT/HCPCS: 36415; 80048; 81001; 81003; 84702; 85025; 86850; 86900; 86901; 87086; 99284

== ENCOUNTER 2020-11-10 23:15 | Emergency (ER) | payer OTHER ==
[2020-11-11 00:21] LABS: BASOPHILS # (AUTO) 0.1 10^3/uL (0.0-0.1); BASOPHILS % (AUTO) 0.6 %; EOSINOPHILS # (AUTO) 0.1 10^3/uL (0.0-0.7); EOSINOPHILS % (AUTO) 0.8 %; HCT - HEMATOCRIT 37.7 % (37.0-47.0); HGB - HEMOGLOBIN 12.3 g/dL (12.0-16.0); LYMPHOCYTES % (AUTO) 24.2 %; MEAN CORPUSCULAR HEMOGLOBIN 31.1 pg (27.0-31.0); MEAN CORPUSCULAR HGB CONC 32.6 g/dL (32.0-36.0); MEAN CORPUSCULAR VOLUME 95.2 fL (81.0-99.0); MEAN PLATELET VOLUME 10.5 fL (7.9-10.8); MONOCYTES # (AUTO) 0.6 10^3/uL (0.0-1.0); MONOCYTES % (AUTO) 4.8 %; NEUTROPHILS # (AUTO) 8.5 10^3/uL (1.5-6.6); NEUTROPHILS % (AUTO) 69.1 %; PLT - PLATELET COUNT 297 10^3/uL (130-450); RED BLOOD COUNT 3.96 10^6/uL (4.20-5.40); RED CELL DISTRIBUTION WIDTH 12.5 % (12.0-15.0); WHITE BLOOD COUNT 12.2 x10^3/uL (4.8-10.8)
--- NOTE | 2020-11-11 00:23 | ED Physician Documentation ---
PD HPI FEMALE - Stated complaint Stated Complaint: 5WKS/BLEEDING - Chief complaint Chief Complaint: Abd Pain - History obtained from History obtained from: Patient - History of Present Illness Associated symptoms: Pelvic pain, Vaginal bleeding (for 3 days, having some spotting, with increased amount today, having used 3-4 light/liner pads today. Thought she noted some tissue appearing material today as well.). 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 Quant done. Blood type A positive.) Review of Systems Constitutional: denies: Fever, Chills Nose: denies: Rhinorrhea / runny nose, Congestion Throat: denies: Sore throat Respiratory: denies: Cough GI: denies: Nausea, Vomiting : reports: Vaginal bleeding, Now EGA (5 wks). denies: Dysuria, Discharge Neurologic: denies: Generalized weakness, Near syncope PD PAST MEDICAL HISTORY - Past Medical History Past Medical History: No Respiratory: Asthma - Past Surgical History Past Surgical History: No - Present Medications Home Medications: Ambulatory Orders Medication Instructions Recorded Confirmed No Known Home Medications 11/02/20 11/10/20 - Allergies Allergies/Adverse Reactions: Allergies Allergy/AdvReac Type Severity Reaction Status Date / Time hydrocodone AdvReac Unknown Verified 11/10/20 23:38 - Social History Does the pt smoke?: No Smoking Status: Never smoker Does the pt drink ETOH?: Yes Does the pt have substance abuse?: No - Immunizations Immunizations are current?: Yes - POLST Patient has POLST: No PD ED PE NORMAL - Vitals Vital signs reviewed: Yes - General General: Alert and oriented X 3, No acute distress, Well developed/nourished - Cardiac Cardiac: RRR, No murmur - Respiratory Respiratory: Clear bilaterally - Abdomen Abdomen: Normal bowel sounds, Soft, Non tender, Non distended - Female Female : Deferred - Back Back: No CVA TTP - Derm Derm: Normal color, Warm and dry Results - Vitals Vitals: Vital Signs - 24 hr 11/10/20 11/11/20 23:35 01:28 Temperature 36.8 C Heart Rate 92 80 Respiratory 16 16 Rate Blood Pressure 118/73 107/90 H O2 Saturation 100 100 Oxygen O2 Source Room air - Labs Labs: Laboratory Tests 11/10/20 11/10/20 11/10/20 00:11 00:11 00:11 WBC 12.2 H RBC 3.96 L Hgb 12.3 Hct 37.7 MCV 95.2 MCH 31.1 H MCHC 32.6 RDW 12.5 Plt Count 297 MPV 10.5 Neut # (Auto) 8.5 H Lymph # (Auto) 3.0 [place] # (Auto) 0.6 Eos # (Auto) 0.1 Baso # (Auto) 0.1 Absolute Nucleated RBC 0.00 Nucleated RBC % 0.0 Sodium 137 Potassium 3.8 Chloride 103 Carbon Dioxide 25 Anion Gap 9.0 BUN 11 Creatinine 0.6 Estimated GFR (MDRD) 126 Glucose 90 Calcium 9.1 Total Bilirubin 0.5 AST 11 ALT < 10 L Alkaline Phosphatase 63 Total Protein 6.8 Albumin 4.1 Globulin 2.7 Albumin/Globulin Ratio 1.5 Lipase 26 HCG, Quant 5406.00 PD MEDICAL DECISION MAKING - ED course Complexity details: reviewed old records, reviewed results, considered differential (increased bleeding today. Rising HCG levels c/w viability UTD, but will want to check HCG again in 2-3 days to evaluate if current bleeding is now the miscarriage. ), d/w patient Departure - Departure Disposition: 01 Home, Self Care Clinical Impression: Vaginal bleeding, Early stage of Condition: Stable Record reviewed to determine appropriate education?: Yes Follow-Up: JESSIE BREAUX ARNP [Primary Care Provider] - Comments: Stay well-hydrated. Tylenol every 4-6 hours if needed for pain or cramps. Alternatively you can use ibuprofen 400 to 600 mg every 6-8 hours if needed for pain or cramps as well. NSAIDs such as ibuprofen are okay in up to about 20 weeks gestational age. Your quantitative hCG is increased today compared to 2 days ago which would mean your is still viable at this time and progressing. Follow-up with your primary care in the next 2 to 3 days at which point there will want to repeat the quantitative hCG again to ensure it still trending upwards. Discharge Date/Time: 11/11/20 01:28
[2020-11-11 00:35] LABS: ALBUMIN 4.1 g/dL (3.2-5.5); ALBUMIN/GLOBULIN RATIO 1.5 (1.0-2.2); ALKALINE PHOSPHATASE 63 IU/L (42-121); ALT ALANINE AMINOTRANSFERASE < 10 IU/L (10-60); AST ASPARTATE AMINOTRANSFERASE 11 IU/L (10-42); BILIRUBIN,TOTAL 0.5 mg/dL (0.2-1.0); BUN - BLOOD UREA NITROGEN 11 mg/dL (6-20); CALCIUM 9.1 mg/dL (8.5-10.3); CARBON DIOXIDE - CO2 25 mmol/L (21-32); CHLORIDE 103 mmol/L (101-111); CREATININE 0.6 mg/dL (0.4-1.0); GFR - MDRD 126 (>89); GLUCOSE 90 mg/dL (70-100); LIPASE 26 U/L (22-51); POTASSIUM 3.8 mmol/L (3.5-5.0); SODIUM 137 mmol/L (135-145); TOTAL PROTEIN 6.8 g/dL (6.7-8.2)
[2020-11-11] MEDS ORDERED: IBUPROFEN 600 MG TABLET PO STA (00:42)
[2020-11-11] MEDS ORDERED: ACETAMINOPHEN 325 MG TABLET PO STA (00:42)
[2020-11-11 01:31] VITALS: BP 107/90
== END 2020-11-11 01:28 | disposition home or self-care (01) ==
LOC: ED 23:15
DX: O20.9 Hemorrhage in early pregnancy, unspecified (principal); Z3A.01 Less than 8 weeks gestation of pregnancy
CPT/HCPCS: 36415; 80053; 83690; 84702; 85025; 99283; 99284; A9270; 86900; 86901

== ENCOUNTER 2020-11-15 23:00 | Emergency (ER) | payer OTHER ==
[2020-11-15 23:48] VITALS: BP 127/77
--- NOTE | 2020-11-16 00:06 | ED Physician Documentation ---
PD HPI FEMALE - Stated complaint Stated Complaint: FEMALE - Chief complaint Chief Complaint: Abd Pain - History obtained from History obtained from: Patient - Additional information Additional information: Patient returns emergency department for chief complaint of ongoing vaginal bleeding after being seen on the and of this month for threatened miscarriage. According to records, on the first day of visit, patient was felt to be somewhere around 5 to 6 weeks . Ultrasound showed a sac with no pole. , patient was found to have a hCG of about 3700, followed by an hCG of 5400 on the . Patient states she had moderate vaginal bleeding throughout that time. She decided to take the weekend off and go to [place] and during that time, she noticed an uptake in her bleeding. She passed what she thought might be some tissue, though she did not notice a sac. Patient states the bleeding has abated a little. She tried to make an appointment with her primary care physician today for follow-up, but could not get through. As such, she decided to return to the emergency department for another repeat hCG to see how things are going. Patient denies fevers or chills. She has mild cramping in her low abdomen. No severe pain. No lightheadedness or fainting. No other complaints at this time. Review of Systems Ten Systems: 10 systems reviewed and negative Constitutional: reports: Reviewed and negative Eyes: reports: Reviewed and negative Ears: reports: Reviewed and negative Nose: reports: Reviewed and negative Throat: reports: Reviewed and negative Cardiac: reports: Reviewed and negative Respiratory: reports: Reviewed and negative GI: reports: Reviewed and negative : reports: Vaginal bleeding, Now EGA Skin: reports: Reviewed and negative Musculoskeletal: reports: Reviewed and negative Neurologic: reports: Reviewed and negative Psychiatric: reports: Reviewed and negative Endocrine: reports: Reviewed and negative Immunocompromised: reports: Reviewed and negative PD PAST MEDICAL HISTORY - Past Medical History Past Medical History: Yes Respiratory: Asthma - Past Surgical History Past Surgical History: No - Present Medications Home Medications: Ambulatory Orders Medication Instructions Recorded Confirmed No Known Home Medications 11/02/20 11/10/20 - Allergies Allergies/Adverse Reactions: Allergies Allergy/AdvReac Type Severity Reaction Status Date / Time hydrocodone AdvReac Unknown Verified 11/10/20 23:38 - Social History Does the pt smoke?: No Smoking Status: Never smoker Does the pt drink ETOH?: Yes Does the pt have substance abuse?: No - Immunizations Immunizations are current?: Yes - POLST Patient has POLST: No PD ED PE NORMAL - Vitals Vital signs reviewed: Yes - General General: Alert and oriented X 3, No acute distress, Well developed/nourished - HEENT HEENT: Atraumatic, PERRL, EOMI, Moist mucous membranes - Neck Neck: Supple, no meningeal sign - Cardiac Cardiac: RRR, No murmur, Strong equal pulses - Respiratory Respiratory: No respiratory distress, Clear bilaterally - Abdomen Abdomen: Soft, Non tender, Non distended - Derm Derm: Normal color, Warm and dry, No rash - Extremities Extremities: No deformity, No edema - Neuro Neuro: Alert and oriented X 3, miller helper distillery 2-12 intact, Normal speech, Other (Grossly intact) - Psych Psych: Normal mood, Normal affect Results - Vitals Vitals: Vital Signs - 24 hr 11/15/20 11/15/20 11/15/20 23:06 23:09 23:42 Temperature 36.4 C L 36.4 C L Heart Rate 176 H 176 H 84 Respiratory 20 20 18 Rate Blood Pressure 133/88 H 133/88 H 127/77 O2 Saturation 100 100 97 Oxygen O2 Source Room air - Labs Labs: Laboratory Tests 11/15/20 23:25 HCG, Quant 322.97 PD MEDICAL DECISION MAKING - ED course Complexity details: reviewed results, re-evaluated patient, considered differential, d/w patient ED course: The patient had been seen already by both her primary care physician and our emergency department, and was known to have an IUP without signs of an ectopic. The patient reported that her bleeding overall was improving a little and that she thought she had passed tissue over the weekend. I repeated her hCG and it was found to be 322. I informed the patient of this and that the precipitous drop in the last several days indicates a certain miscarriage. Most likely, and the patient has completed a fair amount of this process, though I have discussed with her that until her hormones normalize completely and all products are passed, the bleeding should be expected to continue. I have emphasized the importance of follow-up. The patient does not show clinical signs or symptoms of significant blood loss and I feel she is stable for discharge. We have discussed drinking plenty of fluids and that she may also stay on her vitamins until she is no longer bleeding. We have discussed the usual indications for return. Departure - Departure Disposition: 01 Home, Self Care Clinical Impression: Miscarriage Condition: Stable Instructions: ED Miscarriage Incom Comments: Your hormones today are down to 322. On November 08 they were at 3723, and on November 10, they were 5406. Given that your hormones have dropped precipitously since the last time we saw you, it is certain that you are having a miscarriage. As we have discussed, the miscarriages that happen in the early weeks of tend to complete successfully on their own. Most likely, you have passed most of the related tissue in your uterus, and your bleeding should begin to slow down in the next several days. You may follow up with your primary care physician as planned. There is no specific intervention to be done today. Please be sure you drink plenty of fluids. You may continue to take vitamins to support your overall health while your body completes this process. You will most likely have some degree of bleeding, including spotting, for the next week or so. After this, your menstrual cycle should reset. You are free to try to conceive again at any point, starting immediately after your miscarriage is completed. If you experience cramping associated with the miscarriage process, you may use ibuprofen and Tylenol. Discharge Date/Time: 11/16/20 00:09
--- OUTSIDE RECORDS SUMMARY | 2020-11-23 21:56 | EXTERNAL MEDICAL SUMMARY RPT | Continuity of Care Document ---
:2000 Demographics Phone Unavailable Preferred Language Unknown Marital Status Unknown Yazidi Affiliation Unknown Race Unknown Ethnic Group Unknown Author Organization [place] Address [address] [id number] Phone Social History date description facility [phone]
== END 2020-11-16 00:09 | disposition home or self-care (01) ==
LOC: ED 23:00
DX: O03.9 Complete or unspecified spontaneous abortion without complication (principal)
CPT/HCPCS: 36415; 84702; 93005; 99283; 99284

== ENCOUNTER 2021-03-11 04:42 | Emergency (ER) | payer OTHER ==
[2021-03-11 04:55] VITALS: BP 136/86
--- NOTE | 2021-03-11 05:49 | ED Physician Documentation ---
History of Present Illness - Stated complaint Stated Complaint: COUGH - Chief complaint Chief Complaint: General - History obtained from History obtained from: Patient - Additonal information Additional information: Patient comes emergency department chief complaint of sore throat, rhinorrhea, and cough. Patient states she has had symptoms for about 3 days and has tried "everything" at home, but cannot seem to get feeling better. She states she has taken NyQuil, DayQuil, Robitussin, ibuprofen, and Tylenol, but still has a cough and body aches. No measured fevers. The patient states she feels like she is hotter than usual and does not want any covers on, and intermittently has a sense of chills. She denies any abdominal complaints. Patient states her significant other was sick with something similar but that she has not worsened he did. Patient states she has to get tested every couple weeks for Covid for her job and that she was just tested 2 days ago and negative. The patient has a history of tobacco abuse and does admit to continuing to vape. She also used an inhaler as a child, but does not anymore. She states that ever since she had a miscarriage in October, she seems to be sick more often and that she just kind of "gave up" on trying to quit vaping. Review of Systems Ten Systems: 10 systems reviewed and negative Constitutional: reports: Reviewed and negative Eyes: reports: Reviewed and negative Ears: reports: Reviewed and negative Nose: reports: Rhinorrhea / runny nose Throat: reports: Sore throat Cardiac: reports: Reviewed and negative Respiratory: reports: Cough GI: reports: Reviewed and negative : reports: Reviewed and negative Skin: reports: Reviewed and negative Musculoskeletal: reports: Reviewed and negative Neurologic: reports: Reviewed and negative Psychiatric: reports: Reviewed and negative Endocrine: reports: Reviewed and negative Immunocompromised: reports: Reviewed and negative PD PAST MEDICAL HISTORY - Past Medical History Respiratory: Asthma - Past Surgical History Past Surgical History: No - Present Medications Home Medications: Ambulatory Orders Medication Instructions Recorded Confirmed Albuterol Sulf [Ventolin Hfa 1 - 2 puffs INH Q4HR PRN #18 gm 03/11/21 Inhaler] Benzonatate [Tessalon] 200 mg PO TID PRN #12 03/11/21 - Allergies Allergies/Adverse Reactions: Allergies Allergy/AdvReac Type Severity Reaction Status Date / Time hydrocodone AdvReac Unknown Verified 03/11/21 04:57 - Social History Does the pt smoke?: No Smoking Status: Never smoker Does the pt drink ETOH?: Yes Does the pt have substance abuse?: No - Immunizations Immunizations are current?: Yes - POLST Patient has POLST: No PD ED PE NORMAL - Vitals Vital signs reviewed: Yes - General General: Alert and oriented X 3, No acute distress, Well developed/nourished - HEENT HEENT: Atraumatic, PERRL, EOMI, Moist mucous membranes, Pharynx benign - Neck Neck: Supple, no meningeal sign, Other (Mild right anterior cervical lymphadenopathy.) - Cardiac Cardiac: RRR, No murmur, Strong equal pulses - Respiratory Respiratory: No respiratory distress, Clear bilaterally - Abdomen Abdomen: Soft, Non tender, Non distended - Derm Derm: Normal color, Warm and dry, No rash - Extremities Extremities: No deformity, No edema - Neuro Neuro: Alert and oriented X 3, swatch cutter 2-12 intact, Normal speech - Psych Psych: Normal mood, Normal affect Results - Vitals Vitals: Vital Signs - 24 hr 03/11/21 04:50 Temperature 37.0 C Heart Rate 100 Respiratory 18 Rate Blood Pressure 136/86 H O2 Saturation 98 Oxygen O2 Source Room air PD MEDICAL DECISION MAKING - ED course Complexity details: considered differential, d/w patient ED course: I discussed with the patient that her symptoms are most consistent with a viral upper respiratory infection, and that this is a self-limited illness. We have discussed that it is very important that she do all that she can to quit vaping, as this is unlikely to be helping her situation with the recurrent URIs. 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 We have talked about being sure to stay hydrated, get exercise, and eat a healthful diet to optimize her immune system function. We have discussed follow-up with her primary care physician. I will prescribe an albuterol inhaler for any persistent coughing fits and Tessalon Perles. We have discussed the usual indications for return. Departure - Departure Disposition: 01 Home, Self Care Clinical Impression: Upper respiratory infection Qualifiers: URI type: unspecified viral URI Qualified Code(s): J06.9 - Acute upper respiratory infection, unspecified Condition: Stable Instructions: ED URI Viral Prescriptions: Albuterol Sulf [Ventolin Hfa Inhaler] 1 - 2 puffs INH Q4HR PRN #18 gm PRN Reason: Shortness Of Air/Wheezing Benzonatate [Tessalon] 200 mg PO TID PRN #12 PRN Reason: Cough Discharge Date/Time: 03/11/21 05:50
== END 2021-03-11 05:50 | disposition home or self-care (01) ==
LOC: ED 04:42
DX: J06.9 Acute upper respiratory infection, unspecified (principal); F17.290 Nicotine dependence, other tobacco product, uncomplicated
CPT/HCPCS: 99282; 99284

== ENCOUNTER 2022-04-20 15:39 | Emergency (ER) | payer OTHER ==
[2022-04-20] MEDS ORDERED: ONDANSETRON ODT 4 MG TABLET TL STA (16:18)
[2022-04-20 16:20] LABS: BILIRUBIN,URINE NEGATIVE (NEGATIVE); GLUCOSE, URINE (UA) NEGATIVE (NEGATIVE); KETONES,URINE (UA) NEGATIVE (NEGATIVE); LEUKOCYTE ESTERASE, URINE NEGATIVE (NEGATIVE); NITRITE,URINE NEGATIVE (NEGATIVE); OCCULT BLOOD,URINE NEGATIVE (NEGATIVE); PROTEIN,URINE NEGATIVE (NEGATIVE); UROBILINOGEN,URINE 1 (NORMAL) E.U./dL (NORMAL)
[2022-04-20 16:21] LABS: CLARITY,URINE CLEAR (CLEAR); RBC,URINE None Seen /HPF (0-5); WBC,URINE 0-3 /HPF (0-5)
[2022-04-20 16:22] LABS: BACTERIA,URINE Rare /HPF (None Seen); SQUAMOUS EPITHELIAL CELL,UR RARE Squamous (<= Few)
--- NOTE | 2022-04-20 16:22 | ED Physician Documentation ---
History of Present Illness - Stated complaint Stated Complaint: VOMITING BLOOD - Chief complaint Chief Complaint: Cardiac - Additonal information Additional information: 21-year-old female presents to the emergency department for evaluation of chest pain and vomiting. Reports that for about 2 days she has had some substernal chest pain. Nonradiating not associated with exertion or activity. She is also been nauseated and vomited twice. The most recent time was this afternoon and it was somewhat blood-tinged. She does endorse a lot of panic and anxiety. Recently undergoing relationship issues and was found out that she was cheated on. She denies thoughts of self- harm. Due to the reported chest pain her family and friends encouraged her to seek care here in the ER. Does not have a history of hypertension or diabetes. She is a smoker. Unsure of her family history. Chest pain is reproducible at this time patient denies any falls or trauma. Review of Systems Constitutional: denies: Fever Eyes: reports: Reviewed and negative Nose: reports: Reviewed and negative Throat: reports: Reviewed and negative Cardiac: reports: Chest pain / pressure Respiratory: reports: Reviewed and negative GI: reports: Nausea, Vomiting, Hematemesis. denies: Abdominal Pain : reports: Reviewed and negative Skin: reports: Reviewed and negative PD PAST MEDICAL HISTORY - Past Medical History Respiratory: Asthma - Past Surgical History Past Surgical History: No - Present Medications Home Medications: Ambulatory Orders Medication Instructions Recorded Confirmed Albuterol Sulf [Ventolin Hfa 1 - 2 puffs INH Q4HR PRN #18 gm 03/11/21 Inhaler] Benzonatate [Tessalon] 200 mg PO TID PRN #12 03/11/21 Ondansetron Odt [Zofran] 4 mg TL Q6H PRN #10 tablet 04/20/22 - Allergies Allergies/Adverse Reactions: Allergies Allergy/AdvReac Type Severity Reaction Status Date / Time hydrocodone AdvReac Unknown Verified 04/20/22 15:42 - Social History Does the pt smoke?: No Smoking Status: Never smoker Does the pt drink ETOH?: Yes Does the pt have substance abuse?: No - Immunizations Immunizations are current?: Yes - POLST Patient has POLST: No PD ED PE NORMAL - General General: Alert and oriented X 3, No acute distress - HEENT HEENT: Atraumatic, Moist mucous membranes - Neck Neck: Supple, no meningeal sign, No adenopathy - Cardiac Cardiac: RRR, No murmur, Other (Chest pain is reproducible with palpation of the left anterior chest wall. No crepitus ecchymosis or erythema.) - Respiratory Respiratory: No respiratory distress, Clear bilaterally - Abdomen Abdomen: Normal bowel sounds, Soft - Back Back: No CVA TTP, No spinal TTP - Derm Derm: Normal color, Warm and dry - Extremities Extremities: No deformity, No tenderness to palpate, Normal ROM s pain - Neuro Neuro: Alert and oriented X 3, design release engineer 2-12 intact Eye Opening: Spontaneous Motor: Obeys Commands Verbal: Oriented GCS Score: 15 Results - Vitals Vitals: Vital Signs - 24 hr 04/20/22 04/20/22 15:43 16:49 Temperature 36.5 C Heart Rate 88 80 Respiratory 16 20 Rate Blood Pressure 137/78 H 116/80 O2 Saturation 97 98 Oxygen O2 Source Room air - EKG (time done) 1545 Rate: Rate (enter#) (83) Rhythm: NSR Percy: Normal Intervals: Normal NH QRS: Normal Ischemia: Normal ST segments Compare to prior EKG: Old EKG unavailable Computer interpretation: Agree with computer - Labs Labs: Laboratory Tests 04/20/22 04/20/22 04/20/22 16:03 16:24 16:24 WBC 9.5 RBC 4.15 L Hgb 12.9 Hct 37.2 MCV 89.6 MCH 31.1 H MCHC 34.7 RDW 12.3 Plt Count 357 MPV 10.4 Neut # (Auto) 6.7 H Lymph # (Auto) 2.1 [place] # (Auto) 0.6 Eos # (Auto) 0.0 Baso # (Auto) 0.1 Absolute Nucleated RBC 0.00 Nucleated RBC % 0.0 Sodium 136 Potassium 3.5 Chloride 103 Carbon Dioxide 24 Anion Gap 9.0 BUN 9 Creatinine 0.5 Estimated GFR (MDRD) 154 Glucose 100 Calcium 9.4 Total Bilirubin 0.8 AST 12 ALT 11 Alkaline Phosphatase 73 Troponin I High Sens Total Protein 7.5 Albumin 4.4 Globulin 3.1 Albumin/Globulin Ratio 1.4 Lipase 27 Serum HCG, Qual Urine Color YELLOW Urine Clarity CLEAR Urine pH 7.0 Ur Specific [place] 1.020 Urine Protein NEGATIVE Urine Glucose (UA) NEGATIVE Urine Ketones NEGATIVE Urine Occult Blood NEGATIVE Urine Nitrite NEGATIVE Urine Bilirubin NEGATIVE Urine Urobilinogen 1 (NORMAL) Ur Leukocyte Esterase NEGATIVE Urine RBC None Seen Urine WBC 0-3 Ur Squamous Epith Cells RARE Squamous Urine Bacteria Rare Urine Culture Comments NOT INDICATED 04/20/22 04/20/22 16:24 16:24 WBC RBC Hgb Hct MCV MCH MCHC RDW Plt Count MPV Neut # (Auto) Lymph # (Auto) [place] # (Auto) Eos # (Auto) Baso # (Auto) Absolute Nucleated RBC Nucleated RBC % Sodium Potassium Chloride Carbon Dioxide Anion Gap BUN Creatinine Estimated GFR (MDRD) Glucose Calcium Total Bilirubin AST ALT Alkaline Phosphatase Troponin I High Sens < 2.3 L Total Protein Albumin Globulin Albumin/Globulin Ratio Lipase Serum HCG, Qual NEGATIVE Urine Color Urine Clarity Urine pH Ur Specific [place] Urine Protein Urine Glucose (UA) Urine Ketones Urine Occult Blood Urine Nitrite Urine Bilirubin Urine Urobilinogen Ur Leukocyte Esterase Urine RBC Urine WBC Ur Squamous Epith Cells Urine Bacteria Urine Culture Comments PD MEDICAL DECISION MAKING - ED course Complexity details: reviewed results, re-evaluated patient, considered differential, d/w patient ED course: Well-appearing 21-year-old female presents emergency department for evaluation of 2 days substernal chest pain and pressure. This is also associated with 2 days of anorexia and nausea but no abdominal pain. She recently found out that her partner was cheating on her. She also endorses a lot of stressors in the preceding month including her job and loss of family members. On exam she is well-appearing though anxious. Her labs completed today showed no worrisome abnormalities. Specifically no leukocytosis electrolyte derangement or elevated biomarkers/troponin. Her EKG is entirely nonischemic. I was unable to elicit any abdominal pain on my exam. Her chest pain was mildly reproducible though it did not resolve using ketorolac. I suspect that the patient's etiology of symptoms is stemming from anxiety and social stressors. She was a tolerating sips of p.o. after receiving Zofran she found this helpful therefore [facility] [place]. I have advised the patient to discuss this ED visit with her primary care provider otherwise emergent worrisome return precautions were discussed. Departure - Departure Disposition: Home, Self Care Clinical Impression: Chest pain Qualifiers: Chest pain type: unspecified Qualified Code(s): R07.9 - Chest pain, unspecified Nausea and vomiting Qualifiers: Vomiting type: unspecified Qualified Code(s): R11.2 - Nausea with vomiting, unspecified Condition: Stable Record reviewed to determine appropriate education?: Yes Instructions: Anxiety Body Response Follow-Up: JESSIE BREAUX ARNP [Primary Care Provider] - Prescriptions: Ondansetron Odt [Zofran] 4 mg TL Q6H PRN #10 tablet PRN Reason: Nausea / Vomiting Comments: Adriana tripp are seen today in the emergency department because you have had about 2 days of chest pain in your left chest as well as some nausea and vomiting. You have also been undergoing a lot of stressors in your personal life. Here in the emergency department your EKG is entirely normal. Your labs including your blood count electrolytes and markers for heart attack are also normal. You are not . I suspect that most of the cause of your symptoms is anxiety and the stressors at home. This often manifests as chest pain nausea and vomiting in people that present to the ER. I think is important that you be kind yourself over the next few days, take time off work if you need to. I have sent a prescription for Zofran and nausea medicine to [facility] in [place] as you found this helpful today. If at any point you feel unsafe or unsecure, have thoughts of self-harm then please return immediately to the ER. I would like you to discuss this ED visit with your primary care doctor. Sometimes even short amount of talk therapy can be helpful in allowing us to manage your social stressors.
[2022-04-20 16:29] LABS: BASOPHILS # (AUTO) 0.1 10^3/uL (0.0-0.1); BASOPHILS % (AUTO) 0.8 %; EOSINOPHILS % (AUTO) 0.4 %; HCT - HEMATOCRIT 37.2 % (37.0-47.0); HGB - HEMOGLOBIN 12.9 g/dL (12.0-16.0); LYMPHOCYTES # (AUTO) 2.1 10^3/uL (1.5-3.5); LYMPHOCYTES % (AUTO) 22.1 %; MEAN CORPUSCULAR HEMOGLOBIN 31.1 pg (27.0-31.0); MEAN CORPUSCULAR HGB CONC 34.7 g/dL (32.0-36.0); MEAN CORPUSCULAR VOLUME 89.6 fL (81.0-99.0); MEAN PLATELET VOLUME 10.4 fL (7.9-10.8); MONOCYTES # (AUTO) 0.6 10^3/uL (0.0-1.0); MONOCYTES % (AUTO) 6.1 %; NEUTROPHILS # (AUTO) 6.7 10^3/uL (1.5-6.6); NEUTROPHILS % (AUTO) 70.4 %; PLT - PLATELET COUNT 357 10^3/uL (130-450); RED BLOOD COUNT 4.15 10^6/uL (4.20-5.40); RED CELL DISTRIBUTION WIDTH 12.3 % (12.0-15.0); WHITE BLOOD COUNT 9.5 x10^3/uL (4.8-10.8)
[2022-04-20 16:56] LABS: ALBUMIN 4.4 g/dL (3.2-5.5); ALBUMIN/GLOBULIN RATIO 1.4 (1.0-2.2); BILIRUBIN,TOTAL 0.8 mg/dL (0.2-1.0); CALCIUM 9.4 mg/dL (8.5-10.3); CREATININE 0.5 mg/dL (0.4-1.0); POTASSIUM 3.5 mmol/L (3.5-5.0); TOTAL PROTEIN 7.5 g/dL (6.7-8.2)
[2022-04-20 17:10] LABS: HCG,QUALITATIVE BLOOD NEGATIVE
[2022-04-20 17:35] VITALS: BP 113/83
== END 2022-04-20 17:39 | disposition home or self-care (01) ==
LOC: ED 15:39
DX: R07.9 Chest pain, unspecified (principal); R11.2 Nausea with vomiting, unspecified
CPT/HCPCS: 36415; 80053; 81001; 83690; 84484; 84703; 85025; 93005; 99284; Q0162; 87086

== ENCOUNTER 2022-05-23 03:06 | Emergency (ER) | payer MEDICAID, OTHER ==
[2022-05-23 03:12] VITALS: BP 137/70
[2022-05-23 03:41] LABS: BILIRUBIN,URINE NEGATIVE (NEGATIVE); GLUCOSE, URINE (UA) NEGATIVE (NEGATIVE); KETONES,URINE (UA) NEGATIVE (NEGATIVE); LEUKOCYTE ESTERASE, URINE NEGATIVE (NEGATIVE); NITRITE,URINE NEGATIVE (NEGATIVE); OCCULT BLOOD,URINE NEGATIVE (NEGATIVE); PH,URINE 6.5 PH (5.0-7.5); PROTEIN,URINE NEGATIVE (NEGATIVE); UROBILINOGEN,URINE 1 (NORMAL) E.U./dL (NORMAL)
[2022-05-23 03:44] LABS: CLARITY,URINE CLEAR (CLEAR)
[2022-05-23 03:45] LABS: HCG UR QUAL NEGATIVE
[2022-05-23] MEDS ORDERED: KETOROLAC 30 MG/ML VIAL IM STA (04:13)
--- NOTE | 2022-05-23 04:17 | ED Physician Documentation ---
History of Present Illness - Stated complaint Stated Complaint: Abd pain - Chief complaint Chief Complaint: Abd Pain - History obtained from History obtained from: Patient - Additonal information Additional information: 21-year-old G3, P0, not currently present management, otherwise healthy, presents with right lower quadrant abdominal pain immediately after intercourse this evening. Patient had sudden onset severe sharp aching constant pain associated with nonbloody nonbilious nausea and vomiting that she attributes to pain. It has since tapered down from 05/29 and is currently a 5 out of 10. She had been feeling normal prior to this. Denies urinary symptoms, vaginal discharge, diarrhea or fever. Review of Systems Ten Systems: 10 systems reviewed and negative Constitutional: denies: Fever GI: reports: Abdominal Pain, Nausea, Vomiting. denies: Diarrhea : denies: Dysuria PD PAST MEDICAL HISTORY - Past Medical History Respiratory: Asthma - Past Surgical History Past Surgical History: No - Present Medications Home Medications: Ambulatory Orders Medication Instructions Recorded Confirmed Albuterol Sulf [Ventolin Hfa 1 - 2 puffs INH Q4HR PRN #18 gm 03/11/21 Inhaler] Benzonatate [Tessalon] 200 mg PO TID PRN #12 03/11/21 Ondansetron Odt [Zofran] 4 mg TL Q6H PRN #10 tablet 04/20/22 - Allergies Allergies/Adverse Reactions: Allergies Allergy/AdvReac Type Severity Reaction Status Date / Time hydrocodone AdvReac Unknown Verified 05/23/22 03:18 - Social History Does the pt smoke?: No Smoking Status: Never smoker Does the pt drink ETOH?: Yes Does the pt have substance abuse?: No - Immunizations Immunizations are current?: Yes - POLST Patient has POLST: No PD ED PE NORMAL - Vitals Vital signs reviewed: Yes - General General: Alert and oriented X 3, No acute distress, Well developed/nourished - HEENT HEENT: Atraumatic, PERRL, EOMI - Neck Neck: Supple, no meningeal sign - Cardiac Cardiac: RRR - Respiratory Respiratory: No respiratory distress, Clear bilaterally - Abdomen Abdomen: Non tender, Non distended, Other (Discomfort to palpation in right lower quadrant) - Female Female : Pt declined - Back Back: No CVA TTP - Derm Derm: Normal color, Warm and dry - Extremities Extremities: No deformity - Neuro Neuro: Alert and oriented X 3, No motor deficit, No sensory deficit - Psych Psych: Normal mood, Normal affect Results - Vitals Vitals: Vital Signs - 24 hr 05/23/22 03:09 Temperature 36.7 C Heart Rate 98 Respiratory 18 Rate Blood Pressure 137/70 H O2 Saturation 98 Oxygen O2 Source Room air - Labs Labs: Laboratory Tests 05/23/22 05/23/22 03:30 03:30 Urine Color YELLOW Urine Clarity CLEAR Urine pH 6.5 Ur Specific [place] 1.025 Urine Protein NEGATIVE Urine Glucose (UA) NEGATIVE Urine Ketones NEGATIVE Urine Occult Blood NEGATIVE Urine Nitrite NEGATIVE Urine Bilirubin NEGATIVE Urine Urobilinogen 1 (NORMAL) Ur Leukocyte Esterase NEGATIVE Ur Microscopic Review NOT INDICATED Urine Culture Comments NOT INDICATED Urine HCG, Qual NEGATIVE PD MEDICAL DECISION MAKING - ED course ED course: 21-year-old woman presents with likely ruptured ovarian cyst versus other etiology. Education given and patient will follow up with SAT ACT INSTRUCTOR. Return pre cautions given. Departure - Departure Disposition: 01 Home, Self Care Clinical Impression: Vomiting, Abdominal pain Condition: Good Instructions: Cyst Ruptured Ovarian Tx Comments: You were seen in the emergency department for right sided pelvic pain after sex. It is possible you had a cyst on one of your ovaries that popped. Please follow up with sewage plant attendant for pelvic ultrasound this week. Take ibuprofen 600mg every 6 hours as needed for pain. Return to the emergency department if you have any new or worsening symptoms or other concerns. Discharge Date/Time: 05/23/22 04:27
== END 2022-05-23 04:27 | disposition home or self-care (01) ==
LOC: ED 03:06
DX: R10.31 Right lower quadrant pain (principal); R11.2 Nausea with vomiting, unspecified
CPT/HCPCS: 81001; 81003; 81025; 87086; 96372; 99282; 99283

== ENCOUNTER 2022-07-02 11:13 | Emergency (ER) | payer MEDICAID | END 2022-07-02 12:25 | disposition left against medical advice (07) | LOC: ED 11:13 | DX: Z53.21 Procedure and treatment not carried out due to patient leaving prior to being seen by health care provider (principal) ==

== ENCOUNTER 2022-07-30 19:42 | Emergency (ER) | payer MEDICAID, OTHER ==
[2022-07-30 20:14] VITALS: BP 115/74
== END 2022-07-30 20:10 | disposition left against medical advice (07) ==
LOC: ED 19:42
DX: Z53.21 Procedure and treatment not carried out due to patient leaving prior to being seen by health care provider (principal)

== ENCOUNTER 2022-08-12 12:04 | Emergency (ER) | payer MEDICAID ==
[2022-08-12 12:24] VITALS: BP 116/69
[2022-08-12 13:44] LABS: ALBUMIN 4.5 g/dL (3.2-5.5); ALBUMIN/GLOBULIN RATIO 1.4 (1.0-2.2); BILIRUBIN,TOTAL 0.7 mg/dL (0.2-1.0); CALCIUM 9.6 mg/dL (8.5-10.3); CREATININE 0.5 mg/dL (0.4-1.0); POTASSIUM 4.8 mmol/L (3.5-5.0); TOTAL PROTEIN 7.8 g/dL (6.7-8.2)
--- NOTE | 2022-08-12 14:19 | Ultrasound Report ---
PROCEDURE: OB First Trimester w/TV INDICATIONS: 5 weeks preg, + cramping; ?IUP OUTSIDE/PRIOR DATING DATA: Last menstrual period (LMP): 07/03/2022. LMP-based estimated date of delivery (TOÑITO): 04/09/2023. TECHNIQUE: Real-time scanning was performed of the fetus and maternal pelvic organs, with image documentation. Endovaginal scanning was also performed to better visualize the fetus and maternal ovaries. COMPARISON: None. FINDINGS: There is an intrauterine gestational sac seen, with a mean gestational sac diameter of 1.3 cm, which corresponds to an estimated gestational age of 6 weeks 1 day. No pole can be seen at this time. There is an apparent yolk sac seen. Measurement variability in dating: +/- 4 weeks by LMP, +/- 7 days by mean sac diameter (use before 6 weeks gestation if crown-rump length not able to be measured), +/- 5 days by crown-rump length (6-12 weeks gestation). Maternal organs: Ovaries are within normal limits, with likely corpus luteum cysts seen on both side s. IMPRESSION: Likely early intrauterine , with an intrauterine gestational sac seen. Close clinical follow-up with serial beta hCG measurements and serial ultrasound would be recommended , as clinically appropriate. Note: Concordant preliminary findings given by the make up operator upon the completion of the examination to Gloria Navas. Reviewed by: Elieser Burns MD on 08/12/2022 1:18 PM [facility] Approved by: Elieser Burns MD on 08/12/2022 1:18 PM [facility] Station ID: [id number]
--- NOTE | 2022-08-12 14:41 | ED Physician Documentation ---
History of Present Illness - Stated complaint Stated Complaint: PREG,CRAMPING - Chief complaint Chief Complaint: Abd Pain - Additonal information Additional information: 21-year-old female presents the emergency department for evaluation of right- sided pelvic pain and cramping that began yesterday. She reports being approximately 5 weeks . She is denying any fevers vaginal bleeding nausea or vomiting. LMP 07/03/2022 G6, ; she has not yet established with an OB group but is hoping to get in shortly. Review of Systems Constitutional: reports: Reviewed and negative Throat: reports: Reviewed and negative Cardiac: reports: Reviewed and negative Respiratory: reports: Reviewed and negative GI: reports: Abdominal Pain. denies: Nausea, Vomiting : reports: LMP (07/03/2022), Now EGA (5 to 6 weeks). denies: Vaginal bleeding, Irregular menses PD PAST MEDICAL HISTORY - Past Medical History Respiratory: Asthma - Past Surgical History Past Surgical History: No - Present Medications Home Medications: Ambulatory Orders Medication Instructions Recorded Confirmed Albuterol Sulf [Ventolin Hfa 1 - 2 puffs INH Q4HR PRN #18 gm 03/11/21 Inhaler] Benzonatate [Tessalon] 200 mg PO TID PRN #12 03/11/21 Ondansetron Odt [Zofran] 4 mg TL Q6H PRN #10 tablet 04/20/22 - Allergies Allergies/Adverse Reactions: Allergies Allergy/AdvReac Type Severity Reaction Status Date / Time hydrocodone AdvReac Unknown Verified 07/30/22 20:14 - Social History Does the pt smoke?: No Smoking Status: Never smoker Does the pt drink ETOH?: Yes Does the pt have substance abuse?: No - Immunizations Immunizations are current?: Yes - POLST Patient has POLST: No PD ED PE NORMAL - General General: Alert and oriented X 3, No acute distress, Well developed/nourished - HEENT HEENT: Atraumatic, Moist mucous membranes - Neck Neck: Supple, no meningeal sign, No adenopathy - Cardiac Cardiac: RRR, No murmur - Respiratory Respiratory: No respiratory distress, Clear bilaterally - Abdomen Abdomen: Normal bowel sounds, Soft, Non tender (Mild tenderness elicited with palpation of the right lower quadrant without guarding or rebound.) - Back Back: No CVA TTP, No spinal TTP - Derm Derm: Warm and dry - Extremities Extremities: No deformity - Neuro Neuro: Alert and oriented X 3 Results - Vitals Vitals: Vital Signs - 24 hr 08/12/22 12:22 Temperature 37.2 C Heart Rate 85 Respiratory 18 Rate Blood Pressure 116/69 O2 Saturation 100 Oxygen O2 Source Room air - Labs Labs: Laboratory Tests 08/12/22 08/12/22 12:48 12:48 Sodium 134 L Potassium 4.8 Chloride 103 Carbon Dioxide 24 Anion Gap 7.0 BUN 11 Creatinine 0.5 Estimated GFR (MDRD) 154 Glucose 89 Calcium 9.6 Total Bilirubin 0.7 AST 14 ALT 14 Alkaline Phosphatase 68 Total Protein 7.8 Albumin 4.5 Globulin 3.3 Albumin/Globulin Ratio 1.4 Lipase 30 HCG, Quant . - Rads (name of study) OB US Radiology: Final report received (Likely early IUP with an intrauterine gestational sac. Corresponding with a gestational age of 6 weeks 1 day. No pole seen at this time. Likely corpus luteal cyst on both ovaries.) PD Medical Decision Making - ED course Complexity details: reviewed old records, reviewed results, re-evaluated patient, considered differential, d/w patient ED course: This is a well-appearing 21-year-old female that presents to the emergency department for evaluation of right lower quadrant cramping that began yesterday. LMP 07/03/2022 G6, P0 a 5 Clinically on exam she appears rather well. Very minimal tenderness elicited in the right lower quadrant. Unremarkable vital signs. CBC electrolytes were without acute worrisome findings. Urine shows no signs of infection or bacteriuria. She is noted to be a positive. OB ultrasound shows an IUP with gestational sac but no pole measuring approximately 6 weeks. She does have associated corpus luteal cyst and I am told by the fur clipper a small subchorionic hemorrhage. Given the subchorionic hemorrhage she is at risk for early spontaneous miscarriage. She is encouraged to follow closely with her primary care provider/OB. At this time there is nothing to suggest an ectopic . She is discharged home in stable condition and emergent worrisome return precautions discussed Departure - Departure Disposition: 01 Home, Self Care Clinical Impression: Threatened miscarriage, Abdominal cramping complicating Subchorionic hemorrhage in first trimester Qualifiers: Fetus number: single or unspecified fetus Qualified Code(s): O41.8X10 - Other specified disorders of amniotic fluid and membranes, first trimester, not applicable or unspecified; O46.8X1 - Other antepartum hemorrhage, first trimester Condition: Stable Record reviewed to determine appropriate education?: Yes Instructions: ED Miscarriage Poss Comments: Adriana you are seen today in the emergency department because you have been having some right-sided lower pelvic pain and cramping. You are . Today in the emergency department the ultrasound shows that you are approximately 6 weeks 1 day . We do see the gestational sac but it is far too early at this time to see the heart rate. The ultrasound incidentally does show 2 small corpus luteal cysts on your right ovary. This is more likely the cause of your pain. You also have a small subchorionic hemorrhage near this gestational sac. The subchorionic hemorrhage can lead to early miscarriages in some cases. I encourage you to follow closely with your OB provider. Reasons to return to the emergency department would include severe vaginal bleeding which would be quantified by saturating a menstrual pad or large tampon every hour for 4 more hours, uncontrolled vomiting, high fevers or sudden severe or different abdominal pain.
[2022-08-12 14:51] LABS: BILIRUBIN,URINE NEGATIVE (NEGATIVE); GLUCOSE, URINE (UA) NEGATIVE (NEGATIVE); KETONES,URINE (UA) 15 mg/dL (NEGATIVE); LEUKOCYTE ESTERASE, URINE NEGATIVE (NEGATIVE); NITRITE,URINE NEGATIVE (NEGATIVE); OCCULT BLOOD,URINE NEGATIVE (NEGATIVE); PROTEIN,URINE NEGATIVE (NEGATIVE); UROBILINOGEN,URINE 0.2 (NORMAL) E.U./dL (NORMAL)
[2022-08-12 14:54] LABS: CLARITY,URINE CLEAR (CLEAR)
== END 2022-08-12 15:15 | disposition home or self-care (01) ==
LOC: ED 12:04
DX: O20.0 Threatened abortion (principal); O20.8 Other hemorrhage in early pregnancy; Z3A.01 Less than 8 weeks gestation of pregnancy
CPT/HCPCS: 36415; 80048; 80053; 81001; 81003; 83690; 84702; 87086; 99284

== ENCOUNTER 2022-09-25 14:36 | Emergency (ER) | payer MEDICAID ==
--- NOTE | 2022-09-25 15:06 | ED Physician Documentation ---
PD HPI ABD PAIN - Stated complaint Stated Complaint: CRAMPS X 2 DAYS DISCHARGE - Chief complaint Chief Complaint: Abd Pain - History obtained from History obtained from: Patient (This is a G6, P0 with history of 5 miscarriages. Known blood type of a positive at 12 weeks gestation. She had spotting yesterday and has suprapubic cramping radiating to the left today. No bleeding today.) PD PAST MEDICAL HISTORY - Past Medical History Respiratory: Asthma - Past Surgical History Past Surgical History: No - Present Medications Home Medications: Ambulatory Orders Medication Instructions Recorded Confirmed Albuterol Sulf [Ventolin Hfa 1 - 2 puffs INH Q4HR PRN #18 gm 03/11/21 Inhaler] Benzonatate [Tessalon] 200 mg PO TID PRN #12 03/11/21 Ondansetron Odt [Zofran] 4 mg TL Q6H PRN #10 tablet 04/20/22 Nitrofurantoin [Macrobid] 1 cap PO BID #10 cap 09/25/22 - Allergies Allergies/Adverse Reactions: Allergies Allergy/AdvReac Type Severity Reaction Status Date / Time hydrocodone AdvReac Unknown Verified 09/25/22 14:49 - Social History Does the pt smoke?: No Smoking Status: Never smoker Does the pt drink ETOH?: Yes Does the pt have substance abuse?: No - Immunizations Immunizations are current?: Yes - POLST Patient has POLST: No PD ED PE NORMAL - Vitals Vital signs reviewed: Yes - General General: Alert and oriented X 3, No acute distress - Abdomen Abdomen: Normal bowel sounds, Soft, Non tender - Female Female : Other (Bedside ultrasound demonstrates single live intrauterine with positive motion and a heart rate of 152.) - Neuro Neuro: Alert and oriented X 3, Normal speech Results - Vitals Vitals: Vital Signs - 24 hr 09/25/22 09/25/22 09/25/22 14:45 14:58 16:15 Temperature 36.6 C Heart Rate 104 H 86 69 Respiratory 16 18 18 Rate Blood Pressure 127/82 H 119/88 H 108/72 O2 Saturation 99 98 100 Oxygen O2 Source Room air - Labs Labs: Laboratory Tests 09/25/22 15:33 Urine Color YELLOW Urine Clarity CLEAR Urine pH 6.0 Ur Specific [place] 1.025 Urine Protein NEGATIVE Urine Glucose (UA) NEGATIVE Urine Ketones NEGATIVE Urine Occult Blood NEGATIVE Urine Nitrite NEGATIVE Urine Bilirubin NEGATIVE Urine Urobilinogen 0.2 (NORMAL) Ur Leukocyte Esterase SMALL H Urine RBC 0-5 Urine WBC 11-25 H Ur Squamous Epith Cells MANY Squamous H Urine Bacteria Many H Ur Microscopic Review INDICATED Urine Culture Comments NOT INDICATED PD Medical Decision Making - ED course ED course: G6, P0 at 12 weeks gestation with pelvic pain and spotting yesterday. Reassuring bedside ultrasound here with positive motion and heart rate. No free fluid. Urinalysis concerning for cystitis, will add on culture. This could very well explain her symptoms. We will treat with Macrobid. Departure - Departure Disposition: Home, Self Care Clinical Impression: 12 weeks gestation of , Bacteriuria Pelvic pain affecting Qualifiers: Trimester: first trimester Qualified Code(s): O26.891 - Other specified related conditions, first trimester Condition: Good Record reviewed to determine appropriate education?: Yes Instructions: ED UTI Cystitis Female, ED Preg Established Normal Sxs Prescriptions: Nitrofurantoin [Macrobid] 1 cap PO BID #10 cap Comments: You were seen today for pelvic pain and spotting in . Baby is looking good on ultrasound and we did find bacteria in your urine suspect your pain is from a bladder infection. We are prescribing antibiotics for that. Follow-up with your OB within the week for recheck. Return for new or worsening symptoms. Discharge Date/Time: 09/25/22 16:17
[2022-09-25 15:53] LABS: BILIRUBIN,URINE NEGATIVE (NEGATIVE); GLUCOSE, URINE (UA) NEGATIVE (NEGATIVE); KETONES,URINE (UA) NEGATIVE (NEGATIVE); LEUKOCYTE ESTERASE, URINE SMALL (NEGATIVE); NITRITE,URINE NEGATIVE (NEGATIVE); OCCULT BLOOD,URINE NEGATIVE (NEGATIVE); PROTEIN,URINE NEGATIVE (NEGATIVE); UROBILINOGEN,URINE 0.2 (NORMAL) E.U./dL (NORMAL)
[2022-09-25 16:01] LABS: CLARITY,URINE CLEAR (CLEAR)
[2022-09-25 16:03] LABS: BACTERIA,URINE Many /HPF (None Seen); RBC,URINE 0-5 /HPF (0-5); SQUAMOUS EPITHELIAL CELL,UR MANY Squamous (<= Few)
[2022-09-25] MEDS ORDERED: NITROFURANTOIN MACRO 100 MG CAPSULE PO STA (16:05)
[2022-09-25 16:18] VITALS: BP 108/72
== END 2022-09-25 16:17 | disposition home or self-care (01) ==
LOC: ED 14:36
DX: O28.8 Other abnormal findings on antenatal screening of mother (principal); Z3A.12 12 weeks gestation of pregnancy
CPT/HCPCS: 81001; 87086; 99283; A9270; 81003

== ENCOUNTER 2022-11-26 16:46 | Outpatient (CLI) | payer MEDICAID ==
[2022-11-26 17:23] VITALS: BP 110/69
[2022-11-26 17:30] LABS: HCT - HEMATOCRIT 31.9 % (37.0-47.0); HGB - HEMOGLOBIN 10.9 g/dL (12.0-16.0); MEAN CORPUSCULAR HEMOGLOBIN 31.9 pg (27.0-31.0); MEAN CORPUSCULAR HGB CONC 34.2 g/dL (32.0-36.0); MEAN CORPUSCULAR VOLUME 93.3 fL (81.0-99.0); MEAN PLATELET VOLUME 10.4 fL (7.9-10.8); RED BLOOD COUNT 3.42 10^6/uL (4.20-5.40); RED CELL DISTRIBUTION WIDTH 13.2 % (12.0-15.0); WHITE BLOOD COUNT 13.6 x10^3/uL (4.8-10.8)
[2022-11-26 17:32] LABS: BILIRUBIN,URINE NEGATIVE (NEGATIVE); GLUCOSE, URINE (UA) NEGATIVE (NEGATIVE); KETONES,URINE (UA) NEGATIVE (NEGATIVE); LEUKOCYTE ESTERASE, URINE NEGATIVE (NEGATIVE); NITRITE,URINE NEGATIVE (NEGATIVE); OCCULT BLOOD,URINE NEGATIVE (NEGATIVE); PROTEIN,URINE NEGATIVE (NEGATIVE); UROBILINOGEN,URINE 0.2 (NORMAL) E.U./dL (NORMAL)
[2022-11-26 17:34] LABS: CLARITY,URINE CLEAR (CLEAR)
--- NOTE | 2022-11-26 18:24 | PROVIDER PROGRESS NOTE ---
- HPI Chief Complaint: Pain, non-labor Current : Vital Signs Temperature 98.2 F 11/26/22 17:13 Heart Rate 87 11/26/22 17:13 Respiratory Rate 16 11/26/22 17:13 Blood Pressure 110/69 11/26/22 17:13 Temperature 98.2 F 11/26/22 17:23 Heart Rate 87 11/26/22 17:23 Respiratory Rate 16 11/26/22 17:23 Blood Pressure 110/69 11/26/22 17:23 O2 Saturation 99 11/26/22 17:23 If not protocol: Oxygen Flow, liters/minute - Procedures Findings: This 22-year-old 6 para 0 AB 5 presented to the unit with a chief complaint of low pelvic pain. She has been seen by other clinic DrConcepcion And she came here for a second opinion because she was told that her pain is round ligament pain which she did not agree.. She did have spontaneous miscarriage 5 times and the last one was 2 years ago and she become spontaneously. During earlier weeks, he was told that there was a subchorionic hematoma and 2 luteal ovarian cysts. And she was told that growth weight rate was 8 percentile last week. When she emptys her bladder she started to have lower pelvic pain and her pain recurs when she changes her positions. We did run urinalysis and is all negative and CBC showed hemoglobin 10.9 all others were normal. Abdominal examination did not reveal any tenderness and monitoring showed active heart beats. We review all this findings and she was reassured that she does not have UTI and she was strongly advised to add iron pills and also have a close follow-up with serial ultrasounds for the growth. She understood well and she was scheduled to have a follow-up appointment with her provider and we advised her to keep that appointment.
== END 2022-11-26 18:25 | disposition home or self-care (01) ==
LOC: WFO 16:46 → FBP 16:48 → WFO 18:25
PROVIDERS: ATTEND Obstetrics & Gynecology
DX: O99.891 Other specified diseases and conditions complicating pregnancy (principal); R10.2 Pelvic and perineal pain; Z3A.00 Weeks of gestation of pregnancy not specified; Z87.59 Personal history of other complications of pregnancy, childbirth and the puerperium
CPT/HCPCS: 36415; 81001; 81003; 85027; 87086; 99215

== ENCOUNTER 2023-03-13 22:30 | Outpatient (CLI) | payer MEDICAID ==
--- NOTE | 2023-03-13 23:07 | PROVIDER PROGRESS NOTE ---
- HPI Chief Complaint: Labor Check - Procedures OB Procedure Performed: NST NST Procedure: EFM: 130s, moderate variability, positive 15x15 accelerations [place]: 6m NST reactive/Cat 1 Performed and read 03/13/23 Service Date of procedure: 03/13/23 - Plan Plan: 22yo at 37w presenting with contractions since this morning. care at [facility] this am and she says she was <1cm dilated. She was given oxycodone for contraction pain which she took this evening. Denies leaking fluid, vaginal bleeding. Good movement. Tearful at not being in labor and asking for induction. Unable to induce . Offered pain/sleep medications, she declines. All: hydrocodone Meds; PNV, ASA, iron Med: Anemia Surg: teeth Social: denies roxann Fam: noncontributory VSS GEN: NAD CV: Regular rate Resp: Breathing unlabored Ext: no edema SVE 09/08/-3 NST reactive 22yo at 37, false labor - Discharge to home, labor precautions - Follow up at [facility]
[2023-03-13 23:48] VITALS: BP 114/76
== END 2023-03-13 23:50 | disposition home or self-care (01) ==
LOC: WFO 22:30 → FBP 22:31 → WFO 23:50
PROVIDERS: ATTEND Obstetrics & Gynecology
DX: O47.1 False labor at or after 37 completed weeks of gestation (principal); Z3A.37 37 weeks gestation of pregnancy
CPT/HCPCS: 59025; 99215

== ENCOUNTER 2023-04-15 16:25 | Outpatient (CLI) | payer MEDICAID | END 2023-04-15 16:26 | disposition short-term general hospital (02) | LOC: EMS 16:25 | DX: O90.0 Disruption of cesarean delivery wound (principal) | CPT/HCPCS: A0425; A0427; A0999 ==

== ENCOUNTER 2024-02-02 19:18 | Emergency (ER) | payer MEDICAID, OTHER ==
[2024-02-02 19:36] VITALS: BP 115/70; O2SAT 99
[2024-02-02 20:05] LABS: RAPID STREP SCREEN Negative (Negative)
--- NOTE | 2024-02-02 20:21 | ED Physician Documentation ---
History of Present Illness - Stated complaint Stated Complaint: SORE THROAT - Chief complaint Chief Complaint: General - Additonal information Additional information: 23-year-old female with history of asthma presents emergency department with her who she also is checking as a patient for upper respiratory infection symptoms. She says that she has been having ongoing sore throat to the point where even after taking Tylenol she gets little to no relief. She just wants to make sure that is not strep make sure that she is not giving it to her child. Her also has similar symptoms who just got back from [employer] camp. She has no shortness of breath no chest pain she does endorse some mild nausea no vomiting. PD PAST MEDICAL HISTORY - Past Medical History Past Medical History: Yes Respiratory: Asthma - Past Surgical History Past Surgical History: No /[employer]: section - Present Medications Home Medications: Ambulatory Orders Medication Instructions Recorded Confirmed No Known Home Medications 02/02/24 02/02/24 - Allergies Allergies/Adverse Reactions: Allergies Allergy/AdvReac Type Severity Reaction Status Date / Time hydrocodone AdvReac Unknown Verified 02/02/24 19:31 - Social History Does the pt smoke?: No Smoking Status: Never smoker Does the pt drink ETOH?: Yes Does the pt have substance abuse?: No - Immunizations Immunizations are current?: Yes - POLST Patient has POLST: No PD ED PE NORMAL - Vitals Vital signs reviewed: Yes - General General: Alert and oriented X 3, No acute distress, Well developed/nourished - HEENT HEENT: Atraumatic, PERRL - Neck Neck: Supple, no meningeal sign - Cardiac Cardiac: RRR, No murmur, No gallop PD ED PE EXPANDED - HEENT HEENT: Moist mucous membranes (throat erythma, tonsils 1+ bilaterally), Pharynx normal. No: Dry mucous membranes Results - Vitals Vitals: Vital Signs - 24 hr 02/02/24 19:26 Temperature 36.6 C Heart Rate 59 L Respiratory 16 Rate Blood Pressure 115/70 O2 Saturation 99 Oxygen O2 Source Room air - Labs Labs: Microbiology 02/02/24 19:50 Group A Strep Throat Culture - Preliminary Throat CULTURE IN PROGRESS. RESULTS TO FOLLOW. Laboratory Tests 02/02/24 02/02/24 19:50 19:50 Nasal Adenovirus (PCR) NOT DETECTED Nasal B. parapertussis DNA (PCR) NOT DETECTED Nasal Coronavir 229E PCR NOT DETECTED Nasal Coronavir HKU1 PCR NOT DETECTED Nasal Coronavir NL63 PCR NOT DETECTED Nasal Coronavir OC43 PCR NOT DETECTED Nasal Enterovir/Rhinovir PCR NOT DETECTED Nasal Influenza B PCR NOT DETECTED Nasal Influenza A PCR NOT DETECTED Nasal Parainfluen 1 PCR NOT DETECTED Nasal Parainfluen 2 PCR NOT DETECTED Nasal Parainfluen 3 PCR NOT DETECTED Nasal Parainfluen 4 PCR NOT DETECTED Nasal RSV (PCR) NOT DETECTED Nasal B.pertussis DNA PCR NOT DETECTED Nasal C.pneumoniae (PCR) NOT DETECTED Kevin Human Metapneumo PCR NOT DETECTED Nasal M.pneumoniae (PCR) NOT DETECTED Nasal SARS-CoV-2 (PCR) NOT DETECTED Group A Strep Rapid Negative PD Medical Decision Making - ED course ED course: 23-year-old female presents here for upper respiratory infection symptoms. Patient also checking in her who also has similar symptoms. She complains of sore throat symptoms and just wanted to make sure that she did not have strep. Rapid group A strep is negative. Respiratory swab also negative she is overall quite well-appearing mild throat erythema she was agreeable to take 10 mg p.o. dexamethasone for her throat pain afebrile says that she has not had any fevers throughout this process that she is aware of adequate appetite. No chest pain or shortness of breath. No believe any further workup is indicated patient is safe for discharge at this time told to follow-up with her primary care provider return precautions given. Departure - Departure Disposition: 01 Home, Self Care Clinical Impression: Viral syndrome Instructions: ED Viral Syndrome Comments: Thank you for trusting us with your care, we have evaluated you for your sore throat and your viral symptoms. We will call you with what your respiratory panel comes back as if it comes back negative for everything we will not be calling you. Continue to take Tylenol ibuprofen for throat pain the dexamethasone should be helpful for the next 3 days please help with your primary care provider as needed for further evaluation. Forms: PCP List Discharge Date/Time: 02/02/24 20:46
[2024-02-02] MEDS: ACETAMINOPHEN 325 MG TABLET PO STA (20:27)
[2024-02-02] MEDS: DEXAMETHASONE 10 MG/ML VIAL PO STA (20:28)
[2024-02-02] MEDS: CHERRY SYRUP 10 ML UDC PO ONE (20:28)
[2024-02-02 20:49] LABS: B. PARAPERTUSSIS- RESP PCR PAN NOT DETECTED; B. PERTUSSIS- RESP PCR PANEL NOT DETECTED; C. PNEUMONIAE- RESP PCR PANEL NOT DETECTED; CORONAVIRUS 229E-RESP PCR NOT DETECTED; CORONAVIRUS HKU1-RESP PCR NOT DETECTED; CORONAVIRUS NL63-RESP PCR NOT DETECTED; CORONAVIRUS OC43-RESP PCR NOT DETECTED; HUMAN METAPNEUMOVIRUS NOT DETECTED; INFLUENZA A- RESP PCR PANEL NOT DETECTED; INFLUENZA B - RESP PCR PANEL NOT DETECTED; M. PNEUMONIAE- RESP PCR PANEL NOT DETECTED; PARAINFLUENZA VIRUS 1 NOT DETECTED; PARAINFLUENZA VIRUS 2 NOT DETECTED; PARAINFLUENZA VIRUS 3 NOT DETECTED; PARAINFLUENZA VIRUS 4 NOT DETECTED; RHINOVIRUS/ENTEROVIRUS NOT DETECTED; RSV- RESP PCR PANEL NOT DETECTED; SARS-CoV-2 -RESP PCR PANEL NOT DETECTED
== END 2024-02-02 20:46 | disposition home or self-care (01) ==
LOC: ED 19:18
DX: B34.9 Viral infection, unspecified (principal)
CPT/HCPCS: 87070; 87430; 87633; 99283; A9270